=== PATIENT | female | born 1990 | race Caucasian/White ===

== ENCOUNTER → 2023-04-13 | Outpatient (CLI) | payer OTHER, SELFPAY ==
[2023-04-19 10:09] LABS: HPV APTIMA, High Risk Negative (Negative)
== END | disposition home or self-care (01) ==
PROVIDERS: Referring Provider Registered Nurse; Visit Provider Registered Nurse
DX: Z12.4 Encounter for screening for malignant neoplasm of cervix (principal)
CPT/HCPCS: 87624; 88175; G0145

== ENCOUNTER → 2023-05-23 | Outpatient (CLI) | payer OTHER, SELFPAY ==
--- OUTSIDE RECORDS SUMMARY | 2023-05-23 14:12 | XMS RPT_ITS | CCD ---
Author Name Unknown Address [address] [place] [address] Organization [facility] Care Team Providers Care Wharf Tally Clerk Name Role Phone SALVATORE ESPARZA Admitting Unavailable SALVATORE ESPARZA Attending Unavailable ISAIAS, SALVATORE Scruggs Primary Care Unavailable ISAIASSALVATORE TURNER Admitting Unavailable ISAIASSALVATORE TURNER Attending Unavailable SALVATORE ESPARZA Primary Care Unavailable CONNER ALVAREZ NP Admitting Unavailable CONNER ALVAREZ NP Attending Unavailable CONNER ALVAREZ NP Primary Care Unavailable GABY SIEGEL Admitting Unavailable GABY SIEGEL Attending Unavailable CHRISTALGABY ESPOSITO Primary Care Unavailable Unavailable Primary Care Provider UnavailPATTI Miguel Attending Unavailable NATIVIDAD VALDES Unavailable PATTI DE LEON Attending Unavailable PATTI DE LEON Attending Unavailable Medications Completed/Discontinued Medications Medication Drug Class(es) Dates Sig (Normalized) Sig (Original) ARIPiprazole 5 mg oral tablet (2 sources) Atypical Antipsychotic Start: 12-07-2022 End: 01-06-2023 take 1 tablet by mouth once daily ARIPiprazole (ABILIFY) 5 mg tablet Indications: Anxiety and depression Take 1 tablet by mouth once daily. 90 tablet 0 12/07/2022 01/06/2023 Discontinued Problems Active Problems Problem Classification Problem Date Documented Da te Episodic/Chronic Abdominal pain (3 sources) Unspecified abdominal pain; Translations: [Epigastric pain] Onset: 12-21-2021 Episodic Anxiety disorders (4 sources) Mixed anxiety and depressive disorder; Translations: [Anxiety disorder, unspecified] Onset: 01-06-2023 12-07-2022 Chronic Immunizations and screening for infectious disease (2 sources) Viral screening status; Translations: [Encounter for screening for other viral diseases] 12-07-2022 Episodic Mood disorders (1 source) Mood disorders; Translations: [Anxiety and depression] Onset: 01-06-2023 Other injuries and conditions due to external causes (1 source) Injury of right ankle; Translations: [Unspecified injury of right ankle, initial encounter] 04-02-2023 Episodic Other injuries and conditions due to external causes (1 source) Unspecified injury of right ankle, initial encounter; Translations: [Right ankle injury, initial encounter] Onset: 04-02-2023 Episodic Other screening for suspected conditions (not mental disorders or infectious disease) (3 sources) Screening due; Translations: [Encounter for screening for lipoid disorders] 12-07-2022 Episodic Residual codes; unclassified (2 sources) Procedure not indicated; Translations: [Procedure and treatment not carried out for other reasons] 12-07-2022 Episodic Residual codes; unclassified (1 source) Procedure and treatment not carried out for other reasons; Translations: [Procedure, test, or exam not indicated] Onset: 03-17-2023 Episodic Unclassified (1 source) Multiple Concerns Onset: 12-07-2022 Past or Other Problems Problem Classification Problem Date Documented Date Episodic/Chronic Biliary tract disease (2 sources) Calculus of bile duct without cholangitis or cholecystitis without obstruction; Translations: [Disease of gallbladder, unspecified] Onset: 12-21-2021 Episodic Results Test Name Value Interpretation Reference Range Facil ity Vital Signs Date Time Vital Sign Value Performing Clinician Faci lity 04-02-2023 11:30-0500 Body temperature 98.8 [degF] Natividad Valdes APRN.NEWSPAPER EDITOR Work Phone: [facility] 04-02-2023 11:30-0500 Body weight 107.5 kg Natividad Valdes APRN.CNP Work Phone: [facility] 04-02-2023 11:30-0500 Diastolic blood pressure 83 mm[Hg] Natividad Valdes APRN.NEWSPAPER EDITOR Work Phone: [facility] 04-02-2023 11:30-0500 Heart rate 83 /min Natividad Valdes APRN.CNP Work Phone: [facility] 04-02-2023 11:30-0500 Respiratory rate 18 /min Natividad Valdes APRN.NEWSPAPER EDITOR Work Phone: [facility] 04-02-2023 11:30-0500 SaO2% (BldA) [Mass fraction] 96 % Natividad Valdes CAREER RESOURCE SPECIALIST.NEWSPAPER EDITOR Work Phone: [facility] 04-02-2023 11:30-0500 Systolic blood pressure 123 mm[Hg] Natividad Valdes CAREER RESOURCE SPECIALIST.NEWSPAPER EDITOR Work Phone: [facility] Encounters Encounter Date Encounter Type Care Provider Facility Start: 04-02-2023 End: 04-02-2023 ambulatory NATIVIDAD VALDES Facility:[facility] Start: 04-02-2023 End: 04-02-2023 Patient encounter procedure Natividad Valdes APRN.NEWSPAPER EDITOR Work Phone: [facility] Plan of Treatment Date Care Activity Detail Author Start: 01-07-2023 Influenza vaccination C [facility] Start: 12-07-2022 End: 02-06-2023 CBC W Auto Differential panel - Blood CBC + DIFF Lab Routine Anxiety and depression Expected: 12/07/2022, Expires: 02/06/2023 [facility] Work Phone: Payers Date Payer Category Payer Unknown [id number] 2022 Unknown MMO [employer] PPO [id number] 2022-Present [phone] [address] [place] [address] PPO [id number] 1991 Unknown [id number] 1991 Unknown [id number] 1991 Unknown [id number] 1991 Unknown [id number] Unknown [id number] Unknown [id number] Social History Date Type Detail Facility [facility] unknown [facility] Start: 11-23-2022 End: 01-06-2023 [facility] Start: 11-23-2022 End: 01-06-2023 Area Deprivation Index [facility] National Score (1-10 0), lower number is lower risk 65 [facility] Start: 1990 Sex Assigned At Not on file C [facility] Do you belong to any clubs or organizations such as shinto groups, unions, [employer] or athletic groups, or school groups? Yes [facility] Are you now , , , , never or living with a partner? [facility] How often to you hav e a drink containing alcohol? 2-4 times a month [facility] How many standard dr inks containing alcohol do you have on a typical day? 1 or 2 [facility] How often do you hav e 6 or more drinks on 1 occasion? Less than monthly [facility] Do you feel stress - tense, restless, nervous, or anxious, or unable to sleep at night because your mind is troubled all the time - these days [OSQ] Only a little [facility] (I/We) worried wheth er (my/our) food would run out before (I/we) got money to buy more. Never true [facility] In the past 12 month s, was there a time when you were not able to pay the mortgage or rent on time? No [facility] Start: 04-02-2023 [facility] Occasional tobacco smoker [facility] History of tobacco use Cigarette Smoker C [facility] Start: 04-02-2023 Tobacco use and exposure Smoke less tobacco non-user [facility] Start: 04-02-2023 Tobacco [facility] Clinical Notes 11-21-2022 to 04-02-2023 Patient InstructionsPraisler-Natividad Rose APRN.[facility] - 04/02/2023 11:40 AM ESTTelephone Encounter - Priyanka Fisher MA - 03/14/2023 11:17 AM Patti Norris MD - 01/06/2023 12:09 PM EDT Note Date & Type Note Facility 04-02-2023 Note HNO ID: [id number] Author: Jose Roa RT(R) Service: ? Author Type: Technologist Type: Progress Notes Filed: 04/02/2023 11:57 AM Note Text: Radiology Service Progress Note PATIENT NAME: Danni Muñoz DATE OF SERVICE: April 02, 2023 TIME: 11:50 AM PATIENT IDENTITY VERIFICATION COMPLETED USING TWO (2) IDENTIFIERS: Name and Date of confirmed by patient verbally. FALL SCREENING: Has the patient had 2 falls in the last year or 1 fall with injury or currently using an Ambulatory Assistive Device (Walker, Cane, Wheelchair, Crutches, etc.)? Yes, Patient High Risk for Falls What interventions were put in place to prevent falls during this visit? Increased Observations by Caregivers PATIENT GENDER DATA: Female. status: : No status: NO. PATIENT RELEVANT IMPLANT DATA REVIEWED: Not Applicable RADIOLOGY DEPARTMENT: General X-ray: Exam(s) Completed: Lower Extremity X-Ray(s): Ankle, Right and Wt. Bearing PERIPHERAL IV DATA: Not applicable SIGNED BY: RT Marva(R) April 02, 2023 11:50 AM [facility] 04-02-2023 Note HNO ID: [id number] Author: Natividad Valdes APRN.NEWSPAPER EDITOR Service: ? Author Type: Nurse Practitioner Type: Progress Notes Filed: 04/02/2023 12:31 PM Note Text: Subjective Ankle Pain Pertinent negatives include no chills, fever or rash. Danni Muñoz is a 32 year old female who presents with right posterior ankle pain for the past month. She tripped over a pallet at work and twisted her ankle. She had pain at that time but after a few days it started to get better so she did not seek treatment at that time. However she has continued to have pain and has been limping around for a month so my forced me to come in . She has not taken anything for pain. She has used ice on the painful area. Review of Systems Constitutional: Negative for chills and fever. Musculoskeletal: Positive for joint pain. Negative for falls. See HPI Skin: Negative for itching and rash. BP 123/83 Pulse 83 Temp 37.1 ?C (98.8 ?F) Resp 18 Wt 107.5 kg (237 lb) SpO2 96% No past medical history on file. No past surgical history on file. ALLERGIES Patient has no known allergies. MEDICATIONS hydrOXYzine HCl (ATARAX) 10 mg tablet Take 1 tablet by mouth once daily. sertraline (ZOLOFT) 100 mg tablet Take 1 tablet by mouth once daily. FAMILY HISTORY Problem Relation Age of Onset Diabetes Father Ovarian cancer Other Great aunt Social History Tobacco Use Smoking status: Some Days Types: Cigarettes Smokeless tobacco: Never Tobacco comments: Vape Objective Physical Exam Vitals and nursing note reviewed. Constitutional: General: She is not in acute distress. Appearance: Normal appearance. She is obese. Musculoskeletal: General: Tenderness and signs of injury present. No swelling or deformity. Right ankle: No swelling, deformity or ecchymosis. Tenderness present. No lateral malleolus or medial malleolus tenderness. Normal range of motion. Normal pulse. Right Achilles Tendon: Tenderness present. No defects. Sy's test negative. Legs: Skin: General: Skin is warm and dry. Findings: No bruising, erythema or rash. Neurological: Mental Status: She is alert. ASSESSMENT/PLAN: 1. Right ankle injury, initial encounter - ICD9: 959.7, ICD10: S99.911A - XR ANKLE GENERAL 3V AP/LAT/OBL RIGHT RESULT: Ankle mortise maintained. No acute fracture or dislocation. No appreciable soft tissue swelling. IMPRESSION: No acute abnormality Electronic Organ Mechanic: CORNELIA Transcribe Date/Time: Apr 02 2023 12:07P Dictated by : JOSSY SALINAS MD - CONSULT PANEL TO ORTHOPAEDICS - Follow-up with orthopedics as soon as possible for further evaluations. - Discussed red flags and need for immediate medical evaluation if any occur. - Discussed supportive care treatment with fluids, rest and analgesia. - Discussed expected course of illness Natividad Valdes APRN.CNP [facility] 04-02-2023 Instructions Natividad Valdes APRN.CNP - 04/02/2023 12:27 PM EST ASSESSMENT/PLAN: 1. Right ankle injury, initial encounter - ICD9: 959.7, ICD10: S99.911A - XR ANKLE GENERAL 3V AP/LAT/OBL RIGHT RESULT: Ankle mortise maintained. No acute fracture or dislocation. No appreciable soft tissue swelling. IMPRESSION: No acute abnormality Electronic Organ Mechanic: CORNELIA Transcribe Date/Time: Apr 02 2023 12:07P Dictated by : JOSSY SALINAS MD - CONSULT PANEL TO ORTHOPAEDICS - Follow-up with orthopedics as soon as possible for further evaluations. - Discussed red flags and need for immediate medical evaluation if any occur. - Discussed supportive care treatment with fluids, rest and analgesia. - Discussed expected course of illness Natividad Valdes APRN.NEWSPAPER EDITOR documented in this encounter [facility] 04-02-2023 History of Presen t illness Narrative Images from the original note were not included. Subjective Ankle Pain Pertinent negatives include no chills, fever or rash. Danni Muñoz is a 32 year old female who presents with right posterior ankle pain for the past month. She tripped over a pallet at work and twisted her ankle. She had pain at that time but after a few days it started to get better so she did not seek treatment at that time. However she has continued to have pain and has been limping around for a month so my forced me to come in . She has not taken anything for pain. She has used ice on the painful area. Review of Systems Constitutional: Negative for chills and fever. Musculoskeletal: Positive for joint pain. Negative for falls. See HPI Skin: Negative for itching and rash. BP 123/83 Pulse 83 Temp 37.1 C (98.8 F) Resp 18 Wt 107.5 kg (237 lb) SpO2 96% No past medical history on file. No past surgical history on file. ALLERGIES Patient has no known allergies. MEDICATIONS hydrOXYzine HCl (ATARAX) 10 mg tablet Take 1 tablet by mouth once daily. sertraline (ZOLOFT) 100 mg tablet Take 1 tablet by mouth once daily. FAMILY HISTORY Problem Relation Age of Onset Diabetes Father Ovarian cancer Other Great aunt Social History Tobacco Use Smoking status: Some Days Types: Cigarettes Smokeless tobacco: Never Tobacco comments: Vape Objective Physical Exam Vitals and nursing note reviewed. Constitutional: General: She is not in acute distress. Appearance: Normal appearance. She is obese. Musculoskeletal: General: Tenderness and signs of injury present. No swelling or deformity. Right ankle: No swelling, deformity or ecchymosis. Tenderness present. No lateral malleolus or medial malleolus tenderness. Normal range of motion. Normal pulse. Right Achilles Tendon: Tenderness present. No defects. Sy's test negative. Legs: Skin: General: Skin is warm and dry. Findings: No bruising, erythema or rash. Neurological: Mental Status: She is alert. ASSESSMENT/PLAN: 1. Right ankle injury, initial encounter - ICD9: 959.7, ICD10: S99.911A - XR ANKLE GENERAL 3V AP/LAT/OBL RIGHT RESULT: Ankle mortise maintained. No acute fracture or dislocation. No appreciable soft tissue swelling. IMPRESSION: No acute abnormality Electronic Organ Mechanic: CORNELIA Transcribe Date/Time: Apr 02 2023 12:07P Dictated by : JOSSY SALINAS MD - CONSULT PANEL TO ORTHOPAEDICS - Follow-up with orthopedics as soon as possible for further evaluations. - Discussed red flags and need for immediate medical evaluation if any occur. - Discussed supportive care treatment with fluids, rest and analgesia. - Discussed expected course of illness Natividad Valdes APRN.NEWSPAPER EDITOR documented in this encounter [facility] 03-14-2023 Miscellaneous Notes Medication refill requested by Patient Please review and advise. Requested Prescriptions Pending Prescriptions Disp Refills hydrOXYzine HCl (ATARAX) 10 mg tablet 90 tablet 0 Sig: Take 1 tablet by mouth once daily. Last encounter with this provider: Visit date not found Next appt: 03/17/2023 Allergies: Not on File No data found for this vital: BP Hepatitis B Vaccine(1 of 3 - 3-dose series) Never done Covid-19 Vaccine(1) Never done Hepatitis C Screening Never done HIV Screening Never done DTaP,Tdap,Td Vaccine(1 - Tdap) Never done Pap Testing Never done HPV Testing Never done Depression Assessment Never done Influenza Vaccine(1) Never done No results found for: WBC , HB , PLT , GLUC , BUN , CREAT , NA , K , CA , ALKPHOS , TBILI , AST , ALT , CHOL , TG , TSH Current Outpatient Medications on File Prior to Visit Medication Sig hydrOXYzine HCl (ATARAX) 10 mg tablet TAKE 1 TABLET BY MOUTH ONCE DAILY AT BEDTIME AND NEEDED sertraline (ZOLOFT) 100 mg tablet Take 1 tablet by mouth once daily. No current facility-administered medications on file prior to visit. Items addressed in this encounter: Refill Encounter MyChart Encounter Priyanka Fisher MA March 14, 2023 11:18 AM 11:18 AM documented in this encounter [facility] 02-17-2023 Note HNO ID: [id number] Author: Patti De Leon MD Service: ? Author Type: Physician Type: Progress Notes Filed: 03/17/2023 4:57 PM Note Text: Appointment cancelled/rescheduled or patient did not log in for appt. Patti De Leon MD [facility] 01-06-2023 Note HNO ID: [id number] Author: Patti De Leon MD Service: ? Author Type: Physician Type: Progress Notes Filed: 02/17/2023 5:20 PM Note Text: Appointment cancelled/rescheduled or patient did not log in for appt. Patti De Leon MD [facility] 01-06-2023 History of Presen t illness Narrative Appointment cancelled/rescheduled or patient did not log in for appt. Patti De Leon MD documented in this encounter [facility] 01-02-2023 Note HNO ID: [id number] Author: Patti De Leon MD Service: ? Author Type: Physician Type: Progress Notes Filed: 01/06/2023 12:09 PM Note Text: Telemedicine Visit - Distance Health Virtual Visit Note Patient seen on [employer] video visit platform. Location of patient: [place] I have communicated my name and active licensure. The patient's identity and physical location were verified at the time of this visit. Either the patient or their legal clearance representative has been informed of the risks and benefits of -- and alternatives to -- treatment through a remote evaluation and consents to proceed with the evaluation remotely. History of Present Illness Patient presents for follow-up 1) Anxiety/depression - Last visit: Abilify 5mg, Prozac 20mg, Hydroxyzine 10mg. Has been on this regimen for several years. Medications initially worked well, but now having some breakthrough symptoms. Plans to begin trying to conceive and would like to switch to medications safe in [place] taper Prozac and Zoloft. Start Zoloft 25mg. Decrease Prozac to 10mg daily for 1 week. After 1 week, stop Prozac and increase Zoloft to 50mg daily Continue Abilify and Hydroxyzine for now F/u 4-6 weeks. At this time, we will up-titrate the Sertraline dose as needed and d/c Abilify. Feels much better on the medication. 70-75% improved. Abilify has been stopped. Labs ordered, but not obtained. No past medical history on file. Current Outpatient Medications on File Prior to Visit Medication Sig sertraline (ZOLOFT) 50 mg tablet Take 1 tablet by mouth once daily. FLUoxetine (PROZAC) 10 mg capsule 1 capsule daily for 14 days as we cross taper Sertraline. ARIPiprazole (ABILIFY) 5 mg tablet Take 1 tablet by mouth once daily. No current facility-administered medications on file prior to visit. Video Exam (Examination performed via Video enabled technology) General appearance: Alert, oriented, pleasant, in NAD :Yes Ill appearing :No Lethargic appearing :No Respiratory distress :No ASSESSMENT/PLAN: 1. Anxiety and depression - ICD9: 300.00, 311, ICD10: F41.9, F32.A Excellent response to medication Increase Sertraline to 100mg F/u 4-6 weeks, sooner for any new or worsening symptoms To ER for SI - SERTRALINE 100 MG TABLET Patti De Leon MD [facility] 01-02-2023 History of Presen t illness Narrative Telemedicine Visit - Distance Health Virtual Visit Note Patient seen on [employer] video visit platform. Location of patient: [place] I have communicated my name and active licensure. The patient's identity and physical location were verified at the time of this visit. Either the patient or their legal clearance representative has been informed of the risks and benefits of -- and alternatives to -- treatment through a remote evaluation and consents to proceed with the evaluation remotely. History of Present Illness Patient presents for follow-up 1) Anxiety/depression - Last visit: Abilify 5mg, Prozac 20mg, Hydroxyzine 10mg. Has been on this regimen for several years. Medications initially worked well, but now having some breakthrough symptoms. Plans to begin trying to conceive and would like to switch to medications safe in [place] taper Prozac and Zoloft. Start Zoloft 25mg. Decrease Prozac to 10mg daily for 1 week. After 1 week, stop Prozac and increase Zoloft to 50mg daily Continue Abilify and Hydroxyzine for now F/u 4-6 weeks. At this time, we will up-titrate the Sertraline dose as needed and d/c Abilify. Feels much better on the medication. 70-75% improved. Abilify has been stopped. Labs ordered, but not obtained. No past medical history on file. Current Outpatient Medications on File Prior to Visit Medication Sig sertraline (ZOLOFT) 50 mg tablet Take 1 tablet by mouth once daily. FLUoxetine (PROZAC) 10 mg capsule 1 capsule daily for 14 days as we cross taper Sertraline. ARIPiprazole (ABILIFY) 5 mg tablet Take 1 tablet by mouth once daily. No current facility-administered medications on file prior to visit. Video Exam (Examination performed via Video enabled technology) General appearance: Alert, oriented, pleasant, in NAD :Yes Ill appearing :No Lethargic appearing :No Respiratory distress :No ASSESSMENT/PLAN: 1. Anxiety and depression - ICD9: 300.00, 311, ICD10: F41.9, F32.A Excellent response to medication Increase Sertraline to 100mg F/u 4-6 weeks, sooner for any new or worsening symptoms To ER for SI - SERTRALINE 100 MG TABLET Patti De Leon MD documented in this encounter [facility] 12-07-2022 Instructions Patti De Leon MD - 12/07/2022 10:28 AM EDT Have labs drawn (fasting) Start Sertraline (Zoloft) 25mg (1/2 tab) daily. Decrease Prozac to 10mg daily for 1 week. After 1 week, stop Prozac and increase Zoloft to 50mg daily. Continue Abilify for now - We will stop this medication in the future Follow-up in 4-6 weeks. Postpone trying to conceive for now until we have switched over to Sertraline and stopped the Abilify. documented in this encounter [facility] 12-07-2022 Nurse Note Items addressed in this encounter: Virtual Visit Pre Check In Attempted to reach patient no answer Phone number does not ring Courtney Pollock MA December 07, 2022 9:09 AM 9:09 AM documented in this encounter [facility] 12-06-2022 Note HNO ID: [id number] Author: Patti De Leon MD Service: ? Author Type: Physician Type: Progress Notes Filed: 12/07/2022 10:28 AM Note Text: Telemedicine Visit - Distance Health Virtual Visit Note Patient seen on [employer] video visit platform. Location of patient: [place] I have communicated my name and active licensure. The patient's identity and physical location were verified at the time of this visit. Either the patient or their legal clearance representative has been informed of the risks and benefits of -- and alternatives to -- treatment through a remote evaluation and consents to proceed with the evaluation remotely. History of Present Illness Patient presents to establish care. 1) Anxiety/depression - Abilify 5mg, Prozac 20mg, Hydroxyzine 10mg. Has been on this regimen for several years. Medications initially worked well, but now having some breakthrough symptoms. Plans to begin trying to conceive and would like to switch to medications safe in No other health issues. No tobacco, social EtOH. Last pap was 2020. Normal, per patient. No past medical history on file. No current outpatient medications on file prior to visit. No current facility-administered medications on file prior to visit. Video Exam (Examination performed via Video enabled technology) General appearance: Alert, oriented, pleasant, in NAD :Yes Ill appearing :No Lethargic appearing :No Respiratory distress :No ASSESSMENT/PLAN: 1. Anxiety and depression - ICD9: 300.00, 311, ICD10: F41.9, F32.A (primary diagnosis) Cross taper Prozac and Zoloft. Start Zoloft 25mg. Decrease Prozac to 10mg daily for 1 week. After 1 week, stop Prozac and increase Zoloft to 50mg daily Continue Abilify and Hydroxyzine for now F/u 4-6 weeks. At this time, we will up-titrate the Sertraline dose as needed and d/c Abilify. - SERTRALINE 50 MG TABLET - FLUOXETINE 10 MG CAPSULE - CBC + DIFF - TSH BLD - ARIPIPRAZOLE 5 MG TABLET 2. Need for lipid screening - ICD9: V77.91, ICD10: Z13.220 - LIPID PANEL BASIC 3. Diabetes mellitus screening - ICD9: V77.1, ICD10: Z13.1 - COMP METABOLIC PANEL 4. Need for hepatitis C screening test - ICD9: V73.89, ICD10: Z11.59 - HEPATITIS C ANTIBODY IA WITH CONFIRMATION 5. Screening for HIV (human immunodeficiency virus) - ICD9: V73.89, ICD10: Z11.4 - HIV 1 2 COMBO(AG/AB),WITH REFLEX TO DIFFERENTIATION 6. Screening for cervical cancer - ICD9: V76.2, ICD10: Z12.4 Patti De Leon MD [facility] 12-06-2022 History of Presen t illness Narrative Telemedicine Visit - Distance Health Virtual Visit Note Patient seen on [employer] video visit platform. Location of patient: [place] I have communicated my name and active licensure. The patient's identity and physical location were verified at the time of this visit. Either the patient or their legal clearance representative has been informed of the risks and benefits of -- and alternatives to -- treatment through a remote evaluation and consents to proceed with the evaluation remotely. History of Present Illness Patient presents to establish care. 1) Anxiety/depression - Abilify 5mg, Prozac 20mg, Hydroxyzine 10mg. Has been on this regimen for several years. Medications initially worked well, but now having some breakthrough symptoms. Plans to begin trying to conceive and would like to switch to medications safe in No other health issues. No tobacco, social EtOH. Last pap was 2020. Normal, per patient. No past medical history on file. No current outpatient medications on file prior to visit. No current facility-administered medications on file prior to visit. Video Exam (Examination performed via Video enabled technology) General appearance: Alert, oriented, pleasant, in NAD :Yes Ill appearing :No Lethargic appearing :No Respiratory distress :No ASSESSMENT/PLAN: 1. Anxiety and depression - ICD9: 300.00, 311, ICD10: F41.9, F32.A (primary diagnosis) Cross taper Prozac and Zoloft. Start Zoloft 25mg. Decrease Prozac to 10mg daily for 1 week. After 1 week, stop Prozac and increase Zoloft to 50mg daily Continue Abilify and Hydroxyzine for now F/u 4-6 weeks. At this time, we will up-titrate the Sertraline dose as needed and d/c Abilify. - SERTRALINE 50 MG TABLET - FLUOXETINE 10 MG CAPSULE - CBC + DIFF - TSH BLD - ARIPIPRAZOLE 5 MG TABLET 2. Need for lipid screening - ICD9: V77.91, ICD10: Z13.220 - LIPID PANEL BASIC 3. Diabetes mellitus screening - ICD9: V77.1, ICD10: Z13.1 - COMP METABOLIC PANEL 4. Need for hepatitis C screening test - ICD9: V73.89, ICD10: Z11.59 - HEPATITIS C ANTIBODY IA WITH CONFIRMATION 5. Screening for HIV (human immunodeficiency virus) - ICD9: V73.89, ICD10: Z11.4 - HIV 1 2 COMBO(AG/AB),WITH REFLEX TO DIFFERENTIATION 6. Screening for cervical cancer - ICD9: V76.2, ICD10: Z12.4 Patti De Leon MD documented in this encounter [facility] 11-21-2022 Note HNO ID: [id number] Author: Patti De Leon MD Service: ? Author Type: Physician Type: Progress Notes Filed: 12/07/2022 9:21 AM Note Text: Appointment cancelled/rescheduled or patient did not log in for appt. Patti De Leon MD [facility] 11-21-2022 History of Presen t illness Narrative Appointment cancelled/rescheduled or patient did not log in for appt. Patti De Leon MD documented in this encounter [facility] Diagnosis Anxiety and depression- Primary Dysthymic disorder Need for lipid screening Screening for lipoid disorders Diabetes mellitus screening Screening for diabetes mellitus Need for hepatitis C screening test Special screening examination for other specified viral diseases Screening for HIV (human immunodeficiency virus) Special screening examination for other specified viral diseases Screening for cervical cancer Screening for malignant neoplasm of the cervix [facility] Diagnosis Anxiety and depression- Primary Dysthymic disorder Anxiety and depression- Primary Dysthymic disorder [facility] Diagnosis Procedure, test, or exam not indicated- Primary Procedure not carried out for other reasons Anxiety and depression- Primary Dysthymic disorder [facility] Diagnosis Anxiety and depression Dysthymic disorder Anxiety and depression- Primary Dysthymic disorder [facility] Diagnosis Right ankle injury, initial encounter- Primary documented in this encounter [facility] Summary Purpose Family History No Family History Records FoundNo Family History Records FoundNo Family History Records Found Advance Directives No Advanced Directives Records FoundNo Advanced Directives Records FoundNo Advanced Directives Records Found Reason for Referral Specialty Diagnoses / Procedures Referred By Contac t Referred To Contact Orthopedics Diagnoses Right ankle injury, initial encounter Procedures CONSULT PANEL TO ORTHOPAEDICS OFFICE/OUTPATIENT [facility] 60-74 MINUTES Natividad Valdes, ЮЛИЯ.NEWSPAPER EDITOR [address] [place] [address] Referral ID Status Reason Start Date Expiration Date Visits Requested Visits Authorized [id number] Authorized PCP Requested Referral 3 04/01/2024 1 1 Specialty Diagnoses / Procedures Referred By Contloren t Referred To Contact XR IMAGING Diagnoses Right ankle injury, initial encounter Procedures XR ANKLE GENERAL 3V AP/LAT/OBL RIGHT RADEX ANKLE COMPLETE MINIMUM 3 VIEWS Natividad Valdes APRN.NEWSPAPER EDITOR [address] [place] [address] [place] [address] Referral ID Status Reason Start Date Expiration Date V isits Requested Visits Authorized [id number] Closed Auto-Generate d Referral 04/02/2023 05/01/2024 1 1 Additional Source Comments INFORMATION SOURCE (unrecogn ized section and content) DATE CREATED AUTHOR AUTHOR'S ORGANIZ ATION 10/23/2022 [facility] DATE CREATED AUTHOR AUTHOR'S ORGANIZ ATION 04/03/2023 [facility] Source Comments (unrecognize d section and content) In the event this informatio n is protected by the Federal Confidentiality of Alcohol and Drug Abuse Patient Records regulations: The Federal rules restrict any use of the information to criminally investigate or prosecute any alcohol or drug abuse patient.[facility] the event this information is protected by the Federal Confidentiality of Alcohol and Drug Abuse Patient Records regulations: The Federal rules restrict any use of the information to criminally investigate or prosecute any alcohol or drug abuse patient.[facility] the event this information is protected by the Federal Confidentiality of Alcohol and Drug Abuse Patient Records regulations: The Federal rules restrict any use of the information to criminally investigate or prosecute any alcohol or drug abuse patient.[facility] the event this information is protected by the Federal Confidentiality of Alcohol and Drug Abuse Patient Records regulations: The Federal rules restrict any use of the information to criminally investigate or prosecute any alcohol or drug abuse patient.[facility] the event this information is protected by the Federal Confidentiality of Alcohol and Drug Abuse Patient Records regulations: The Federal rules restrict any use of the information to criminally investigate or prosecute any alcohol or drug abuse patient.[facility] the event this information is protected by the Federal Confidentiality of Alcohol and Drug Abuse Patient Records regulations: The Federal rules restrict any use of the information to criminally investigate or prosecute any alcohol or drug abuse patient.[facility] the event this information is protected by the Federal Confidentiality of Alcohol and Drug Abuse Patient Records regulations: The Federal rules restrict any use of the information to criminally investigate or prosecute any alcohol or drug abuse patient.[facility] Reason for Visit (unrecogniz ed section and content) Reason Comments Multiple Concerns Reason Comments Follow Up Reason Comments Ankle Pain R ankle pain x1 shell h FOR RECORDS PERTAINING TO PATIENTS WHO ARE OR HAVE BEEN ENROLLED IN A CHEMICAL DEPENDENCY/SUBSTANCEABUSE PROGRAM, SOME INFORMATION MAY BE OMITTED. This clinical summary was aggregated from multiple sources. Caution should be exercised in using it in the provision of clinical care. This summary normalizes information from multiple sources, and as a consequence, information in this document may materially change the coding, format and clinical context of patient data. In addition, data may be omitted in some cases. CLINICAL DECISIONS SHOULD BE BASED ON THE PRIMARY CLINICAL RECORDS. [employer] [facility]. provides no warranty or guarantee of the accuracy or completeness of information in this document.
[2023-05-23 14:22] LABS: hCG Titer Quant., Serum 16 mIU/mL (1-3)
== END | disposition home or self-care (01) ==
LOC: PAVLAB 13:26
PROVIDERS: Referring Provider Nurse Practitioner Women's Health; Visit Provider Nurse Practitioner Women's Health
DX: N92.0 Excessive and frequent menstruation with regular cycle (principal)
CPT/HCPCS: 36415; 84702; 86850; 86900; 86901

== ENCOUNTER → 2023-05-25 | Outpatient (CLI) | payer OTHER, SELFPAY ==
[2023-05-25 11:18] LABS: hCG Titer Quant., Serum 9 mIU/mL (1-3)
== END | disposition home or self-care (01) ==
LOC: PAVLAB 10:22
PROVIDERS: Visit Provider Nurse Practitioner Women's Health
DX: N92.0 Excessive and frequent menstruation with regular cycle (principal)
CPT/HCPCS: 36415; 84702

== ENCOUNTER 2023-08-08 08:00 | Outpatient (RCR) | payer OTHER, SELFPAY ==
--- NOTE | 2023-08-08 09:00 | BH.SGPN.GN ---
Behaviors/Verbalizations/Mental Status: [Patient was alert and oriented, appropriately dressed and groomed. Eye contact was poor, motor activity normal, patient did not speak other than stating she did not want to share. Affect and mood unable to be determined due to lack of participation. Thoughts unable to be determined due to lack of participation. Reviewed Patients symptom tracker and the patient reports depressed mood, anxiety/panic attacks, agitation/irritability/anger, self-harm urges, and thoughts/risk of suicide within normal limits.] Client Response/Progress/Benefit: [Today was patients first day. Patient stated she did not want to share during first group. Patient was quiet and respectful to other group members while they shared their mental wins and stressors. Patient will continue with IOP treatment to help develop healthy skills, promote mood stability, and improve distress tolerance. ] Narrative Note: []
--- NOTE | 2023-08-08 09:00 | BH.COMM ---
Communication Note Communication with Client Communication Note: Met with patient to complete initial paperwork and review history. No significant changes since pre-admission screening. Completed [place] Suicide Screening. Low risk. Consulted with Dr. Ramirez with plan to admit to IOP with dx F41.1
--- NOTE | 2023-08-08 10:10 | BH.SGPN.GN ---
Behaviors/Verbalizations/Mental Status: []Pt alert and oriented, casually dressed and groomed. Eye contact good. Motor activity appropriate. Speech within normal limits. Affect congruent, mood depressed and anxious. Thoughts linear, logical, no signs of hallucinations or delusions. Client Response/Progress/Benefit: [] Pt connected with topic of anxiety and participated throughout, providing input at times and taking notes. Participated throughout interactive discussion defining anxiety and identifying cognitive and physiological symptoms of anxiety. Group discussed how anxiety can prevent them from trying new things. Pt identified physical signs of anxiety as increased heart rate, headache, and stomachache. Pt identified safety behaviors as masking emotions, dissociation, and avoidance. Benefited from increased awareness and insight on anxiety and its impact. Pt will continue IOP tx to prevent decompensation, improve daily functioning, and increase coping skill repertoire. Narrative Note: []
--- NOTE | 2023-08-08 11:15 | BH.SGPN.GN ---
Behaviors/Verbalizations/Mental Status: []Pt alert and oriented, casually dressed and groomed. Eye contact fair. Motor activity appropriate. Speech within normal limits. Affect congruent, mood anxious. Thoughts linear, logical, no signs of hallucinations or delusions. Client Response/Progress/Benefit: [] Pt was an active participant AEB pt providing input and listening attentively to peers. Attentive during psychoeducation on mindfulness coping skills and their impact on reducing anxiety and improving overall mental health wellness. Group was able to identify self-soothing and mind-based coping skills which included: 5-senses, meditation, deep breathing, journaling, thought challenging, and progressive muscle relaxation. Pt also participated with peers in practicing mindfulness skills in session. Pt would like to work on spending more time with her animals when she feels anxious. Appeared to benefit from increasing repertoire of anxiety reduction skills. Pt will continue in IOP tx to prevent decompensation, maintain safety, and improve daily functioning. ? Narrative Note: []
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
--- NOTE | 2023-08-10 10:45 | BH.NA_ITS ---
Physical Data Vital Signs Pulse Rate: 69 Blood Pressure: 132/88 Height/Weight Height: 1.75 m Weight:: 105.233 kg Weight in Pounds: 232.0 lbs Current Medication Compliance Medication Compliance Do you take your medication as prescribed?: Yes Nutritional History Appetite Nutritional Instructions: Describe your appetite:: Good Additional nutritional information:: Client states she has gained 65lbs in the l ast 9-10 months and reports overeating at times to the point of feeling sick. Functional Assessment Sleep Pattern Describe any problems with sleeping: Client states she has been sleeping about 4-5 hours per night for years. Sensory/Communication Assess Communication Problems Do you have difficulty understanding what people are saying?: No Medical Problems/History Metabolic Conditions Metabolic: Other (See comments) (PCOS) Pain Assessment Do you have acute or chronic pain?: No Family History Family History Mother Hypertension CAD (coronary artery disease) Aunt Ovarian cancer 30s, had hysterectomy Father Diabetes Surgical History Surgical History Have you had any surgeries? If so, list type and date:: Yes (cholecystectomy) Substance Abuse Substance Abuse Please describe substance abuse in the last 30 days:: Client states she has about 1 glass of wine per week. Client states she is a former cigarette smoker for 10 years and quit in 2020. Client states she does vape socially. Client has a history of using cocaine and heroin for a 2 year period, but states she has been sober for 12 years and denies any other substance use. Client states she currently drinks a whole pot of coffee per day and 1-2 energy drinks per day. Client states Dr. Ramirez talked to her about cutting out energy drinks and stopping caffeine use after 12pm. Mental Status Summary Mental Status Significant Findings/Observations on Appearance and Mood:: Client is alert and oriented x 4. Client is casually groomed with good hygiene. Client is cooperative with assessment. Client makes fair eye contact. Client's voice has normal rate and volume. Client has a flat affect. Client makes logical associations and has normal processing. Client denies delusions/hallucinations. Client denies current SI. Suicide Assessment Suicidal Ideation Are you currently or have you been suicidal in the past?: Yes Suicidal Intentional Rating Scale (SIRS): Suicidal thoughts (past) Physician Notification Past Psychiatric History Treatment Hx Past Psychiatric Medications:: Prozac, Xanax, others that she can not remember at this time Age of first mental health symptoms: Client states she first took medications for anxiety around age 19 and has taken them off and on since then. Describe (age, circumstance, etc) any past hospitalizations: in 2009 after a suicide attempt Current providers for mental health treatment (counselor, psychiatrist, case management specialist, etc.): [facility] for counseling Fall Risk Assessment Age Age: Less than 60 Mental Status Mental Status: Willing & able to ask for assistance when needed Physical Status Physical Status: No problems Impairments Impairments: None Elimination Elimination: Continent AND independent Gait or Balance Gait or Balance: Walks independently Hx of Falls History of falls in the past 6 months: No known history Medications/Substances Psychotropics:: Antidepressants and Antipsychotics Medications/substances used within the past 24 hours or ordered to administer: 1-2 of the medications/substances listed above Total Score Total Points:: 1 RN Summary of Impressions Impressions Recommendations Impressions: Psychiatric Issues: 1. Bipolar 1 disorder, most recent episode depression, severe without psychosis (F31.4) 2. PTSD 3. Generalized anxiety disorder 4. 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 Client reports she had a traumatic childhood, and states her mom in 2015 from a heroin overdose and her dad in 2017 in a car accident. Client states she had a cousin that 2 weeks after her dad. Client states her biggest mental health trigger was having a miscarriage in May of 2023. Client states her has been very supportive, but states she feels like he's at the end of his rope with me and this is like a last-ditch effort to save my marriage. Client reports decreased sleep, decreased ability to do ADL's, anhedonia, and panic attacks 2-3 times per week. Client denies SI. IOP will promote gains and prevent further decompensation while providing social support and skills training.
[2023-08-10 10:59] VITALS: BP 132/88; PULSE 69
--- NOTE | 2023-08-10 11:20 | BH.SGPN.GN ---
Behaviors/Verbalizations/Mental Status: []Pt alert and oriented, neatly dressed and groomed. Eye contact good. Motor activity appropriate. Speech within normal limits. Affect congruent, mood anxious. Thoughts linear, logical, no signs of hallucinations or delusions. Client Response/Progress/Benefit: [] Pt was an active participant in group discussions and experiential activity. Attentive during psychoeducation on the 4 A's (Avoid, adapt, alter, accept) of coping with stress. Shared that they would benefit most from accepting that there are some stressors that are permanently in her jar but she can learn to live alongside them. Was able to identify the connection between the experiential activity and utilization of stress management skills. Benefited from increased awareness of stress management strategies. Pt will continue IOP tx to prevent decompensation, improve daily functioning, and increase healthy coping skills. Narrative Note: []
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
--- NOTE | 2023-08-10 12:28 | BH.DR.ITP ---
Initial Treatment Plan Patient Information Visit Information: ADMISSION DATE: EXPECTED LOS: 4-6 weeks Problems/Symptoms Problem #1:: Mood instability Symptom:: Sadness, hopelessness, guilt, passive thoughts of , low energy, biological disruption of sleep, anhedonia, decreased concentration Symptom:: Recent episodes of donna several months ago. Problem #2:: Anxiety Symptom:: Worry, rumination, panic attacks, nightmares, flashbacks, avoidance
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
--- NOTE | 2023-08-10 14:32 | BH.MTP ---
[facility] Patient Information Program Physician:: Dr. 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 Description of Barriers: Pt has C-PTSD and her trauma continues to impact her functioning and mood. Pt has significant marital issues right now which pt reports belief is due to her mental health. Pt has many negative thoughts about self and she is grieving the loss of her . Functional Impact: Pt is a 32-year-old female with a history of Bipolar Disorder, RUPALI, and PTSD referred to [facility] due to severe anxiety, isolation, and mental health impacting pt's functioning and relationships. Pt had a miscarriage in May 2023 and she reports after this she had a psychotic break. during this time pt reports she was not thinking clearly, had disorganized thoughts, and she was being really reckless. 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 Pt currently endorses a depressed mood with low energy, lack of motivation, poor sleep, increased appetite, isolation, anhedonia, and poor concentration. Pt reports panic attacks 2-3 times a week and racing thoughts. Pt's symptoms are impacting her marriage as well as her occupational functioning per pt's report. Goal Relevant Strengths/Supports: Pt is motivated, has outpatient counseling, and she has been sober for 12 years. Objectives Objective #1: Stated Objective: Pt will learn and utilize 2-3 healthy coping strategies to better manage depressive symptoms and reduce suicidal ideations as shown by a decrease of DMS-5 symptoms for depression. Interventions: Through group and individual sessions, therapist will help pt identify triggers and warning signs of depression and guilt including emotional, physical, and behavioral changes. Therapist will teach pt various coping skills to manage symptoms and give pt tangible resources to use to regulate emotions. Therapist will use cognitive restructuring techniques and help pt gain awareness of negative thoughts that reinforce guilt and depression. Therapist will provide psychoeducation on maintenance cycles and help pt learn ways to break unhealthy maintenance cycles. Therapist will help pt incorporate behavioral activation and assist pt in setting SMART goals. Discharge Criteria: Pt will have met this goal when can report learning and using at least 2 coping skills to manage depressive symptoms and reduce isolation. Additionally, pt will have met this goal when pt's DSM-5 scores for depression decrease. Target Date: 09/19/23 Review Date: 08/29/23 Status: open Objective #2: Stated Objective: Pt will identify at least 2-3 negative self-talk messages used to reinforce negative core beliefs, worthlessness, and isolation and replace thoughts with balanced, realistic messages. Interventions: Therapist will help pt identify distorted, negative beliefs about self and replace with more realistic, affirmative messages. Therapist will use CBT and DBT to help pt increase insight to the connection between thoughts, emotions, and behaviors. Therapist will encourage pt to practice thought challenging. Discharge Criteria: Pt will have achieved this goal when can verbalize at least 2 cognitive distortions and effectively replace those thoughts with affirmative messages. Target Date: 09/19/23 Review Date: 08/29/23 Status: open Problem/Goal #2 Problem/Goal #2 Stated Goal:: Will reduce intensity of anxiety and PTSD symptoms through increasing emotional regulation and distress tolerance skills Description of Barriers: Pt has C-PTSD and her trauma continues to impact her functioning and mood. Pt has significant marital issues right now which pt reports belief is due to her mental health. Pt has many negative thoughts about self and she is grieving the loss of her . Functional Impact: Pt is a 32-year-old female with a history of Bipolar Disorder, RUPALI, and PTSD referred to [facility] due to severe anxiety, isolation, and mental health impacting pt's functioning and relationships. Pt had a miscarriage in May 2023 and she reports after this she had a psychotic break. during this time pt reports she was not thinking clearly, had disorganized thoughts, and she was being really reckless. 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 Pt currently endorses a depressed mood with low energy, lack of motivation, poor sleep, increased appetite, isolation, anhedonia, and poor concentration. Pt reports panic attacks 2-3 times a week and racing thoughts. Pt's symptoms are impacting her marriage as well as her occupational functioning per pt's report. Goal Relevant Strengths/Supports: Pt is motivated, has outpatient counseling, and she has been sober for 12 years. Objectives Objective #1: Stated Objective: Pt will identify 2-3 anxiety triggers and 2 coping skills to use when feeling anxious to manage anxiety as shown by reducing DSM-5 scores for anxiety Interventions: Therapist will provide education on anxiety, avoidance behaviors, and maintenance cycles. Therapist will help pt explore personal symptoms and warning signs of anxiety. Therapist will teach pt coping skills to improve emotional regulation, mindfulness, and distress tolerance to help pt cope with anxiety in the moment. Discharge Criteria: Pt will have accomplished this goal when she can identify at least 2 triggers and report using 2 coping skills to manage anxiety. Additionally, pt will have accomplished this goal AEB reduction of DSM-5 scores for anxiety. Target Date: 09/19/23 Review Date: 08/29/23 Status: open Objective #2: Stated Objective: Pt will increase ability to manage stressors and anxiety by gaining 2-3 distress tolerance skills. Interventions: Through group and individual therapy, pt will learn various coping skills to help manage stress and anxiety. Therapist will utilize DBT distress tolerance skills to increase awareness and give pt tools to more effectively manage anxiety. Therapist will provide psychoeducation on emotional regulation and help pt identify unhealthy coping skills she wants to change. Discharge Criteria: Pt will have accomplished this goal when can report improved ability to manage stressors and identify at least 2 distress tolerance skills. Target Date: 09/19/23 Review Date: 08/29/23 Status: open
--- NOTE | 2023-08-12 09:05 | BH.SGPN.GN ---
Behaviors/Verbalizations/Mental Status: [] Eye contact is good. Motor activity is appropriate. Appearance is casual. Speech is Appropriate. Mood is depressed. Affect is congruent. Thoughts are linear and logical. No evidence of psychosis. Reviewed daily check in sheet and no reports of suicidal ideations or intent. Client Response/Progress/Benefit: [] Pt participated when prompted. Attentive. Daily symptom tracker notes 4/5 for depression, anxiety, and irritability. Able to identify mental health benefits and healthy habits. Mental health wins include showering daily. I'm feeling better . Notes decreased anxiety and restlessness which she attributes to medication changes. Stressors include constantly trying to put on a happy face. Gave examples of this. She also reports that a couple of her friends are expecting which is difficult due to her recent miscarriage. Shared how this impacts her thoughts, emotions, and behaviors. Progress noted per pt report. Benefited from group support, encouragment, and feedback. Will continue in IOP to prevent decompensation, increase healhy coping, and stabilize mood. Narrative Note: []
--- NOTE | 2023-08-12 10:15 | BH.SGPN.GN ---
Behaviors/Verbalizations/Mental Status: [] Eye contact is good. Motor activity is appropriate. Appearance is casual. Speech is Appropriate. Mood is depressed and anxious. Affect is congruent. Thoughts are linear and logical. No evidence of psychosis. Client Response/Progress/Benefit: []Pt engaged participant AEB listening to others, engaging in activity, and providing feedback at times. Attentive during psychoeducation and provided insight into obstacles that impede mental wellness. Pt shared with group current mental health reality and desired mental health reality. Stated she would like to get to a place where she feels more confident and less depressed. Identified barriers to desired reality include: past trauma, negative self-talk, and need for instant gratification. Benefited from taking look at current mental health state and obstacles for progress. Pt to continue IOP tx to improve mood stability, reduce reliance on maladaptive coping, and prevent decompensation. Narrative Note: []
--- NOTE | 2023-08-12 11:15 | BH.SGPN.GN ---
Behaviors/Verbalizations/Mental Status: [] Eye contact is good. Motor activity is appropriate. Appearance is casual. Speech is Appropriate. Mood is anxious. Affect is congruent. Thoughts are linear and logical. No evidence of psychosis Client Response/Progress/Benefit: [] Pt was an active participant in group discussion and activity. Worked with group to identify strategies to help overcome barriers and obstacles to desired reality. Group developed strategies for the common barriers. Identified personal barriers to desired reality and choose one obstacle to work. Pt stated she wants to work on barrier of not enough time by setting nighttime schedule and setting limits for self. Pt seemed to benefit from increased repertoire of healthy coping skills/strategies to overcome common barriers to moving forward. Pt is to continue IOP to promote use of healthy coping skills, increase confidence, and prevent decompensation.
--- NOTE | 2023-08-15 09:00 | BH.SGPN.GN ---
Behaviors/Verbalizations/Mental Status: [ Patient was alert and oriented, appropriately dressed and groomed. Eye contact was fair, motor activity normal, speech quiet. Affect congruent, mood tired. Thoughts linear, logical, no signs of hallucinations or delusions. Reviewed Patients symptom tracker and the patient reports moderate to severe in depressed mood, anxiety/panic attacks and agitation/irritability/anger. Patient does not report symptoms of self-harm urges or thoughts/risk of suicide] Client Response/Progress/Benefit: [Patient was engaged and open to the discussion. Patient reported her mood to be ?lethargic?. Patients first win is she and her went on a hike with their dogs yesterday which was nice. Patients second win was that she got new hearing aids recently. However, her stressor is that the hearing aids have been overwhelming her but has been forcing herself to wear them still. Patient was interactive and respectful with other group members about their mental wins and stressors. Patient benefited from the discussion by listening to feedback and giving input on her peer?s stressors and mental health wins. Patient will continue with IOP treatment to help develop healthy skills, promote mood stability, and improve distress tolerance. ] Narrative Note: []
--- NOTE | 2023-08-15 10:15 | BH.SGPN.GN ---
Behaviors/Verbalizations/Mental Status: []Patient was alert and oriented, casually dressed and groomed. Eye contact was good, motor activity normal, speech within normal limits. Affect congruent, mood anxious and depressed. Thoughts linear, logical, no signs of hallucinations or delusion Client Response/Progress/Benefit: []Pt participated in the group discussions AEB providing input and taking notes. Attentive during psychoeducation Goal Setting. Participated during the discussion on common barriers which the group identified as: lack of motivation, making excuses, not feeling good enough, and lack of support. Group also identified benefits sense of purpose, improved self-confidence, more motivation for other goals, and improved mental health. Pt reports struggling specifically with barriers of low motivation and procrastination. Benefited from increased awareness of mental health benefits of goals as well as psychoeducation on SMART goal criteria. Will continue in IOP to prevent decompensation, improve daily functioning, and increase ability to manage emotions reinforcing depression and anxiety. Narrative Note: []
--- NOTE | 2023-08-15 11:10 | BH.SGPN.GN ---
Behaviors/Verbalizations/Mental Status: []Pt alert and oriented, casually dressed and groomed. Eye contact fair. Motor activity appropriate. Speech within normal limits. Affect constricted, mood anxious. Thoughts linear, logical, no signs of hallucinations or delusions. Client Response/Progress/Benefit: [] Pt was engaged during discussion and willing to complete the worksheet challenging them to develop a personal SMART goal. Pt chose the goal of cleaning one room of the house each day. Pt stated this will improve her mood and will be able to invite friends over. Pt identified low motivation and negative self-talk as potential barriers. Identified solutions such as rewarding self and reminding self how she will feel after accomplishing the goal. Pt receptive to identifying solutions for these barriers and willing to begin working on this goal. Benefited from this group by developing a short-term SMART goal related to mental health. Will continue IOP tx to improve daily functioning, increase healthy coping, and prevent decompensation.
--- NOTE | 2023-08-17 09:52 | BH.MDN ---
Multi-Disciplinary Note Note 30-min Individual: Time Started:: 09:12 Date: 08/17/23 Purpose of session/treatment goals addressed:: To help pt gain awareness of her symptoms of bipolar disorder so pt can catch and prevent episodes and worsening of symptoms. Another goal was to review coping skills for impulse control. Eye Contact:: Good Motor Activity:: Restless Appearance:: Neat Speech:: Rapid Mood:: Euthymic and Other (hypomanic) Affect:: Full Thoughts:: Linear, Logical, Racing and No evidence of hallucinations/delusions noted Staff Interventions:: thought challenging, psychoeducation on: (Bipolar Disorder and gave worksheet about donna and depressive symptoms), CBT techniques, rapport building, strengths perspective, goal setting and taught coping skills (Delay, Distract, Decide ) Client Response:: Pt responded well to session, open to meeting with therapist. Pt reports feeling much better this week and stated that he medication must be helping. Pt stated her PCP was thinking about adding another medication, but pt wanted to talk to Dr. Stewart first. Pt will be seen today and given a recommendation. Pt receptive to learning more about bipolar disorder as pt recognizes today she could be feeling slightly manic. Pt shared she has not been spending too impulsively, but she did purchase an IPad without telling her and that is a warning sign. Pt stated in the past her donna has led to a lot of marital issues and she is trying to improve for both herself and her marriage. Pt stated she has a hard time not lying to her and pt feels that she has been lying as a coping mechanism for years, so it is challenging to stop. Pt receptive to learning about Delay, Distract, Decide as well as writing down three questions to ask herself before making any purchases. Pt also stated she plans to talk with her about her purchase to build trust. Pt was given a worksheet from the Bipolar Workbook and therapist reviewed it with pt. Pt will start this for homework to help pt gain more awareness of her diagnosis. Risks/Concerns:: Pt presents as slightly manic currently, but she is still sleeping and she feels she is still making healthy decisions. No SI or HI noted. Progress Toward Goals/Plan:: Pt is making progress towards her tx goals AEB pt's self-report of her medication helping her mood and improve motivation. Pt stated she is also feeling more optimistic. Pt recognizes she could be slightly manic right now, but she stated she is not as severe as she has been in the past. Will discuss with IOP tx team and monitor. Pt can continue to benefit from IOP tx to prevent any decompensation, monitor medication and mood, and gain healthy coping skills to more effectively manage her bipolar disorder. Time Stopped:: 09:40
--- NOTE | 2023-08-17 10:05 | BH.SGPN.GN ---
Behaviors/Verbalizations/Mental Status: [] Eye contact is good. Motor activity is appropriate. Appearance is casual. Speech is Appropriate. Mood is anxious. Affect is congruent. Thoughts are linear and logical. No evidence of psychosis. Client Response/Progress/Benefit: [] Pt was actively engaged, providing input at times, and taking notes throughout session. Connected with the topic of pitfalls and listened to group discussion on internal and external barriers that prevent from choosing a healthier path to mental wellness. Group worked together to identify examples of personal internal pitfalls and pt identified theirs as manic episodes, self-sabotage, isolation, and trust issues. Pt benefited from group as pt learned to better identify and normalize potential barriers to improving mental health symptoms. Pt also gained awareness of the difference between external triggers and self-sabotaging behaviors. Will continue in IOP to prevent decompensation, stabilize mood, and increase healthy coping. Narrative Note: []
--- NOTE | 2023-08-17 11:10 | BH.SGPN.GN ---
Behaviors/Verbalizations/Mental Status: []Pt alert and oriented, casually dressed and groomed. Eye contact good. Motor activity appropriate. Speech within normal limits. Affect congruent, mood euthymic. Thoughts linear, logical, no signs of hallucinations or delusions. Client Response/Progress/Benefit: [] Pt receptive of session, engaged throughout AEB actively contributing and listening to discussion, as well as taking notes. Pt participated in the experiential activity and processed with group how their emotions, perspective, and reactions positively and negatively impacted the outcome. Pt identified pitfalls they struggle with and shared wanting to work on pitfall of anger/lashing out by practicing the Delay, Distract, Decide skill. Benefited from identifying personal pitfalls and strategies to overcome these pitfalls. Will continue IOP tx to prevent decompensation, improve daily functioning, and increase distress tolerance skills. ? Narrative Note: []
--- NOTE | 2023-08-17 11:34 | PCM.BH.PN ---
Progress Note Progress Note: This is documentation of a conversation with the patient to answer her question of whether she should start Wellbutrin that her primary care doctor prescribed for her yesterday. Discussed with the patient that she is not to start the Wellbutrin as 1 week ago we decided to wean the Abilify and started quetiapine or Seroquel which we will treat bipolar depression and hypomania so organ to stay the course with the plan that we decided on 1 week ago. She is not to start the Wellbutrin. This was not a visit just a conversation with the patient and I will see her as planned in 1 week.
--- NOTE | 2023-08-19 09:05 | BH.SGPN.GN ---
Behaviors/Verbalizations/Mental Status: [Patient was alert and oriented, appropriately dressed and groomed. Eye contact was good, motor activity normal, speech within normal limits. Affect congruent, mood content. Thoughts linear, logical, no signs of hallucinations or delusions. Reviewed Patients symptom tracker and the patient reports moderate to severe in anxiety/panic attacks, moderate in depressed mood and agitation/irritability/anger. Patient does not report symptoms of self-harm urges, or thoughts/risk of suicide] Client Response/Progress/Benefit: [Patient was engaged and open to the discussion. Patient reported her mood to be ?happy?. Patients first win s that she is feeling like her old self for the first time in a long while. She stated that she believes that her medication adjustment as well as her morning affirmations have been benefiting her. Patients second win is that she anticipates her [id number] to be [place] from [place] this weekend. She shared that they normally have dinner with her once a week but for the past 2 weeks they haven?t. Patient said she was not able to identify a stressor but maybe that she feels her mood might be too good to be true. Patient was interactive and respectful with other group members about their mental wins and stressors. Patient benefited from the discussion by listening to feedback and giving input on her peer?s stressors and mental health wins. Patient will continue with IOP treatment to help develop healthy skills, promote mood stability, and improve distress tolerance. ] Narrative Note: []
--- NOTE | 2023-08-19 10:10 | BH.SGPN.GN ---
Behaviors/Verbalizations/Mental Status: [] Eye contact is good. Motor activity is appropriate. Appearance is casual. Speech is Appropriate. Mood is anxious. Affect is congruent. Thoughts are linear and logical. No evidence of psychosis Client Response/Progress/Benefit: [] Pt responded well to session AEB contributing to small group discussion, taking notes, and listening attentively to others. Group defined anger and discussed the benefits of managed anger and anger as a secondary emotion. Pt shared perspective on personal benefits of anger as advocating for self. Pt completed worksheet on anger triggers and personal warning signs of anger. Pt identified a common trigger as being interrupted. Appeared to benefit from increased knowledge of the anger cycle as well as personal triggers. Will continue IOP to prevent decompensation, increase healthy coping skills, and improve functioning. Narrative Note: []
--- NOTE | 2023-08-19 11:15 | BH.SGPN.GN ---
Behaviors/Verbalizations/Mental Status: []Client alert and oriented, casually dressed and groomed. Eye contact good. Motor activity appropriate. Speech within normal limits. Affect congruent, mood content, anxious. Thoughts linear, logical, no signs of hallucinations or delusions. Client Response/Progress/Benefit: []Pt was engaged throughout AEB contributing to group discussion and self-reflection. Group finished processing cues to anger worksheet. Pt contributed as group brainstormed healthy coping skills for better managing anger which included: music, walking/exercise, taking a break, grounding tools, reflection, and journaling. Pt identified personal anger cycle and was able to make connections on how own thoughts/evaluations of a situation can worsen anger feelings. Stated will work on applying deep breathing skills to regulate herself when recognizing anger cues. Pt appeared to benefit from identifying different techniques to manage anger as well as gaining awareness of potential consequences of unmanaged anger. Pt to continue IOP to promote use of healthy coping skills, challenge distortions, promote mood stability, and prevent decompensation. Narrative Note: []
--- NOTE | 2023-08-22 09:00 | BH.SGPN.GN ---
Behaviors/Verbalizations/Mental Status: [Patient was alert and oriented, appropriately dressed and groomed. Eye contact was good, motor activity normal, speech within normal limits. Affect congruent, mood content. Thoughts linear, logical, no signs of hallucinations or delusions. Reviewed Patients symptom tracker and the patient reports moderate in depressed mood, anxiety/panic attacks, and low/moderate in agitation/irritability/anger. Patient does not report symptoms of self-harm urges or thoughts/risk of suicide.] Client Response/Progress/Benefit: [ Patient was engaged and open to the discussion. Patient reported her mood to be ?happy?. Patients first win is that she did not have any panic or anxiety attacks over the weekend. She said she believes that she feels more receptive of the therapy and has been working on herself at home more. Patients second win was that she and her went on a 3-mile hike yesterday and took advantage of the nice weather. Patients stressor is that her mom?s birthday is coming soon and since she?s passed, it?s difficult for her. Patient was interactive and respectful with other group members about their mental wins and stressors. Patient benefited from the discussion by listening to feedback and giving input on her peer?s stressors and mental health wins. Patient will continue with IOP treatment to help develop healthy skills, promote mood stability, and improve distress tolerance. ] Narrative Note: []
--- NOTE | 2023-08-22 10:10 | BH.SGPN.GN ---
Behaviors/Verbalizations/Mental Status: []Client alert and oriented, casually dressed and groomed. Eye contact good. Motor activity appropriate. Speech within normal limits. Affect congruent, mood anxious and content. Thoughts linear, logical, no signs of hallucinations or delusions. Client Response/Progress/Benefit: []Pt engaged in session AEB listening attentively to others and providing input throughout. Pt engaged in activity, able to connect how it can be uncomfortable and difficult to accept when things are out of one?s own control. Pt worked with group to identify what things in life can be hard to accept. Group identified things hard to accept as: change, loss of relationship, mental health diagnosis, other?s behaviors, and finances. Pt identified struggling to accept aging which has led to making decisions that may have been pushing herself too hard. Seemed to benefit from increased awareness of importance of acceptance. Pt to continue IOP tx to further improve mood stability, application of emotion regulation and healthy boundary setting skills, and prevent decompensation. Narrative Note: []
--- NOTE | 2023-08-22 11:10 | BH.SGPN.GN ---
Behaviors/Verbalizations/Mental Status: []Pt alert and oriented, casually dressed and groomed. Eye contact fair. Motor activity appropriate. Speech within normal limits. Affect congruent, mood anxious. Thoughts linear, logical, no signs of hallucinations or delusions. Client Response/Progress/Benefit: []Pt responded well to session AEB taking notes and contributing to discussion throughout. Pt engaged as group continued discussion on acceptance and the mental health benefits of practicing acceptance. Pt and peers identified what makes acceptance challenging and pt completed a self-reflection exercise on what is hard to accept in pt's life. Pt identified what is hard to accept in her life and how makes things harder when resists acceptance. Group identified strategies to increase acceptance and pt wrote down what strategy she wants to practice. Pt appeared to benefit from gaining insight and learning strategies to increase acceptance. Pt will continue IOP tx to increase confidence, challenge distortions, increase healthy coping skills, and prevent decompensation.
--- NOTE | 2023-08-24 09:00 | BH.SGPN.GN ---
Behaviors/Verbalizations/Mental Status: [Patient was alert and oriented, appropriately dressed and groomed. Eye contact was good, motor activity normal, speech within normal limits. Affect congruent, mood happy. Thoughts linear, logical, no signs of hallucinations or delusions. Reviewed Patients symptom tracker and the patient reports low moderate in depressed mood, anxiety/panic attacks, and agitation/irritability/anger. Patient does not report symptoms of self-harm urges/behaviors, or thoughts/risk of suicide.] Client Response/Progress/Benefit: [Patient was engaged and open to the discussion. Patient reported her mood to be ?rejuvenated?. Patients first win is that she has not had any panic or manic episodes and she is trying to keep herself from stressing about ?when it?ll happen again?. Patients second win is that she woke up extra early today to put together her new end tables and still feels rested. Patients stressor is that her new medication she is on has been inducing hot flashes and they are uncomfortable. Patient was interactive and respectful with other group members about their mental wins and stressors. Patient benefited from the discussion by listening to feedback and giving input on her peer?s stressors and mental health wins. Patient will continue with IOP treatment to help develop healthy skills, promote mood stability, and improve distress tolerance. ] Narrative Note: []
--- NOTE | 2023-08-24 10:10 | BH.SGPN.GN ---
Behaviors/Verbalizations/Mental Status: [] Eye contact is good. Motor activity is appropriate. Appearance is casual. Speech is Appropriate. Mood is anxious and content. Affect is congruent. Thoughts are linear and logical. No evidence of psychosis. Client Response/Progress/Benefit: [] Pt was an active participant in group discussions. Attentive during psychoeducation on the 4 communication styles (Passive, Passive-Aggressive, Aggressive, and Assertive) and the obstacles to effective communication. Contributed during interactive discussion on the benefits of communicating effectively which included; having one's needs met, helping, building connection with others, decreases stress and uncertainty, improved relationships, and increased trust. Worked well in small group in which pt and peers identified the benefits and disadvantages to the different communication styles. Pt identified connecting with aspects of passive communication style, reports she avoids conflict which can create friction within her marriage. Benefited from increased understanding of communication styles and how these can impact effective communication. Will continue in IOP to prevent decompensation, improve mood stability, and improve functioning. Narrative Note: []
--- NOTE | 2023-08-24 11:15 | BH.SGPN.GN ---
Behaviors/Verbalizations/Mental Status: []Pt alert and oriented, neatly dressed and groomed. Eye contact good. Motor activity appropriate. Speech within normal limits. Affect congruent, mood euthymic. Thoughts linear, logical, no signs of hallucinations or delusions. Client Response/Progress/Benefit: [] Pt responded well to session AEB Pt listening attentively to others and providing input during group discussion on the pay offs and costs of the different communication styles. Pt able to connect how current communication style impacts mental health. Connected with peers? comments about importance of using assertive communication. Pt did well being assertive in the group activity and practiced using assertive communication in the role playing scenarios. Pt helped her group develop assertive communication responses which pt reported was helpful because pt tends to be more passive. Pt seemed to benefit from increasing awareness of healthy strategies to improve communication. Will continue IOP tx to promote mood stability, reduce use of unhealthy coping skills, and improve daily functioning. ? Narrative Note: []
--- NOTE | 2023-08-24 12:08 | PCM.BH.PN ---
Progress Note Progress Note: History of Present Illness/Interim History: Patient is a 32-year-old female with a history of bipolar 1 disorder, PTSD, anxiety, cocaine and heroin use disorder (sober x 12 years) who is seen in follow-up at the [facility] behavioral health IOP. I last saw the patient 2 weeks ago and at that time we we decided to wean her Abilify and she discontinued it 1 week ago due to history of impulsivity and overspending. She had gambling issues shortly after restarting Abilify. And was using alcohol to excess at that time also. In addition the patient spontaneously stole a deposit from work then changed her mind and brought back but this resulted in her being fired from her job. She is now on probation for 1 year from this. We also added Seroquel and her slowly increasing it to help stabilize the patient's cycling. And treat her depression. The patient states that she feels she is doing well. She states that she feels calm. She states that her notices also that she is doing much better. She does not feel that she is hypomanic and she states that she has been watching for signs but has not noticed any rapid speech or rapid thinking. Since adding the Seroquel 2 weeks ago at 100 mg for sleep has faster onset now but she is still waking up during the night but is reading instead of getting out of bed. She feels she is functioning better at home. She denies sadness now and states that energy is normal. Current Psychiatric Medications: [] Abilify 5 mg discontinued 1 week ago., Seroquel 100 mg p.o. nightly (x 2 weeks); Zoloft 100 mg p.o. daily (x 1 year); hydroxyzine 10 mg p.o. at bedtime only Mental Status Examination: [] Patient is a 32-year-old female who is casually dressed and groomed with good hygiene and appears normal for stated age and is ambulatory with a normal gait. She has no psychomotor agitation or retardation. Eye contact is good and speech is normal rate and rhythm and fluent with no pressure. Mood is euthymic. Affect is full and normal or mildly constricted. Thought process is goal-directed and organized. Thought content: There is no evidence of passive thoughts of , suicidal ideation, plan for suicide, homicidal ideation, hallucinations, delusions or symptoms of donna. Reality testing is intact. Intelligence is above average. Judgment is intact. Insight Limited but some present. Impulsivity high. Diagnoses: [] 1. Bipolar 1 disorder, most recent episode depression in partial remission (F31.75) 2. PTSD 3. Generalized anxiety disorder 4. 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 Status post recent spontaneous May 23, 2023 which triggered depression and impulsive actions Plan: [] The patient will continue the IOP at [facility] as the structure, support, education and group therapy will hopefully prevent worsening of the patient's symptoms which could require rehospitalization. The patient felt safe during the interview and if it anytime she does not feel safe she will let us know or go to the emergency room. The risk, options, possible complications and side effects of the medications including weight gain with Seroquel were discussed again with the patient and she understands and accepts these. She will stay off the Abilify as he has done well off of it. The patient will agrees to increase the Seroquel to 150 mg p.o. nightly and prescription is sent in for this. In addition we will decrease the Zoloft to 50 mg p.o. daily in the hopes of decreasing her cycling and the tendency for an antidepressant to trigger hypomania and bipolar 1 patients. I will see the patient in follow-up in 2 weeks and she will continue to follow-up with her outpatient providers. The patient will continue to look for signs of hypomania or donna and will let us know if these develop. Plan is to slowly increase the Seroquel probably to 200 mg at next appointment to serve as a mood stabilizer and treatment for bipolar depression.
--- NOTE | 2023-08-26 09:00 | BH.SGPN.GN ---
Behaviors/Verbalizations/Mental Status: []Pt alert and oriented, neatly dressed and groomed. Eye contact good. Motor activity appropriate. Speech within normal limits. Affect congruent, mood euthymic. Thoughts linear, logical, no signs of hallucinations or delusions. Reviewed pt?s symptom tracker, no risk for suicidal ideation, plan, or intent 08/26/23 Client Response/Progress/Benefit: []Pt responded well to session, attentive and providing support to peers. Pt reports feeling mellow and excited this morning sharing I've been in such a good state of mind lately, I hope it lasts. Pt stated she has been motivated and more engaged with her which has improved their relationship. Pt stated she has also been using healthy coping skills consistently since starting IOP including dialectical thinking and affirmations. 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 Pt expressed worry that she will not be able to maintain, but she received support from group which pt appeared to benefit from. Pt will continue IOP tx to promote mood stability, improve distress tolerance, and increase application of healthy coping skills. Narrative Note: []
--- NOTE | 2023-08-26 10:15 | BH.SGPN.GN ---
Behaviors/Verbalizations/Mental Status: [] Eye contact is good. Motor activity is appropriate. Appearance is casual. Speech is Appropriate. Mood is euthymic. Affect is congruent. Thoughts are linear and logical. No evidence of psychosis. Client Response/Progress/Benefit: [] Client was an active participant during interactive group discussions. Attentive during psychoeducation on the six types of boundaries (physical, emotional, intellectual, sexual, time, and material) AEB note-taking. Along with peers contributed to interactive discussion on defining what a boundary is in mental health. Client along with peers identified challenges to setting boundaries which included; lack of self awareness, guilt, generational cycles, fear of disappointing the other person, etc. Client along with peers identified the benefits to setting boundaries such as increased identify of self, genuine relationships, self-care, and increased confidence. Group discussed the mental health benefits to establishing boundaries at work, school, and home. Client benefited from increased awareness and insight on the importance/benefit to setting health boundaries. Will continue in IOP to prevent decompensation, increase self worth, and increase emotional regulation. Narrative Note: []
--- NOTE | 2023-08-26 12:04 | BH.MDN_ITS ---
Multi-Disciplinary Note Note 45-min Individual: Time Started:: 11:10 Date: 08/26/23 Purpose of session/treatment goals addressed:: To work on goal #2 of pt's tx plan and to rehearse effective communication techniques. Eye Contact:: Good Motor Activity:: Appropriate Appearance:: Neat Speech:: Appropriate Mood:: Euthymic Affect:: Full Thoughts:: Linear, Logical and No evidence of hallucinations/delusions noted Staff Interventions:: thought challenging, CBT techniques, mindfulness skills, strengths perspective, goal setting, taught coping skills and other (rehearsed what pt wants to communicate with her .) Client Response:: Pt responded well to session, open to meeting with therapist. Pt reports she has been doing much better and she does not feel she is manic. Pt completed homework from last session which went over different are as in functioning and had pt identify what this looks like when pt is depressed, manic, and at her baseline. Pt shared she had her look at it as well and they both found it helpful. Pt stated after completing the worksheet it gave pt more of an idea of what her baseline looks like and this led to a discussion of pt communicating needs and warning signs with her . Pt stated for belen og, there are times when pt will want to lay in bed one more and be lazy and my gets upset. Discussed how pt's may associate certain behaviors with depression and this is an opportunity for pt to talk to him to clarify. Pt wrote down what she wanted to address with her including sleeping in at times, coloring her hair, and not wanting to be as social some days. Pt gained insight that not all behaviors are insight, it has to do more with the amount and the length pt engages in certain behaviors. Pt plans to talk with her this weekend. Risks/Concerns:: No report of suicidal ideations or thoughts of . Progress Toward Goals/Plan:: Pt is making progress towards her tx goals AEB pt's self-report of improved functioning at home, improving relationship with her , and reduced depressive symptoms. Pt reports applying coping skills outside of IOP tx and finding benefit in these. Pt wants to continue to work on improving her communication with her and reducing negative thinking patterns. Pt to continue IOP tx to promote gains, further reduce negative thinking patterns, and improve mood stability. Time Stopped:: 11:55
--- NOTE | 2023-08-29 10:15 | BH.SGPN.GN ---
Behaviors/Verbalizations/Mental Status: []Pt alert and oriented, neatly dressed and groomed. Eye contact good. Motor activity appropriate. Speech within normal limits. Affect congruent, mood euthymic. Thoughts linear, logical, no signs of hallucinations or delusions. Client Response/Progress/Benefit: [] Pt responded well to session, contributing to discussion, and engaged during the activity. Group identified the benefits of change which included: increased confidence, improving mental health, and making progress. Worked with the group to identify barriers to change, which included: uncomfortable emotions such as anxiety and fear, lack of energy, worried about what others will think, and fear of the unknown. Pt participated along with group in activity where they identified and discussed the emotions related to change. Pt connected with peers that one can have many conflicting emotions when faced with change. Benefited from increased awareness and understanding of emotions, benefits, and barriers related to change. Will continue IOP tx to promote mood stability, reinforce use of healthy coping skills, and improve self-confidence. Narrative Note: []
--- NOTE | 2023-08-29 11:10 | BH.SGPN.GN ---
Behaviors/Verbalizations/Mental Status: [] Client alert and oriented, casually dressed and groomed. Eye contact good. Motor activity appropriate. Speech within normal limits. Affect congruent, mood content. Thoughts linear, logical, no signs of hallucinations or delusions. Client Response/Progress/Benefit: [] Client responded well to session, attentive. Did well to process activity and work with group to relate the strategies used to overcome barriers in the activity to managing change in own life. Client identified a change they are struggling with is accepting being on probation. Client identified currently being in preparation stage for this particular change. Client stated their goal is to practice using opposite action when tempted to give up. Appeared to benefit from identifying a small goal to work towards. Client will continue IOP tx to prevent decompensation, decrease thoughts that lead to depressive symptoms and increase overall functioning. Narrative Note: []
--- NOTE | 2023-08-30 09:05 | BH.SGPN.GN ---
Behaviors/Verbalizations/Mental Status: [] Eye contact is good. Motor activity is appropriate. Appearance is casual. Speech is Appropriate. Mood is euthymic. Affect is full. Thoughts are linear and logical. No evidence of psychosis. Reviewed daily check in sheet and no reports of suicidal ideations or intent. Client Response/Progress/Benefit: [] Pt participated at times during the group discussion. Attentive. Daily symptom tracker notes 3/5 for depression and 2/5 for anxiety/irritability. Able to identify mental health wins and healthy habits. Emotion for today is happy. Upcoming stressor of visiting her family whom she reports are generally not supportive and don't believe in mental health struggles. Elaborated on how this can impact her self-esteem, relationships, and mental health. Increased purpose, engagement, and energy this past week. Utilizing skills like opposite-action and behavioral activation. Also reports challenging and reframing her thoughts which has helped throughout the day. Progress noted. Benefited from group support, encouragement, and feedback. Will continue in IOP to prevent decompensation, increase healthy coping, and improve functioning. Narrative Note: []
--- NOTE | 2023-08-31 09:00 | BH.SGPN.GN ---
Behaviors/Verbalizations/Mental Status: [] Pt alert and oriented, neatly dressed and groomed. Eye contact good. Motor activity appropriate. Speech within normal limits. Affect congruent, mood stressed. Thoughts linear, logical, no signs of hallucinations or delusions. Reviewed pt?s symptom tracker, no risk for suicidal ideation, plan, or intent 08/31/23 Client Response/Progress/Benefit: []Pt responded well to session, attentive and listening to peers. Pt reports feeling stressed this morning because she found out her credit card information was stolen, but she stated she handled it better than she would have in the past. Pt was able to take care of the issue this morning prior to IOP and made it on time. Pt gave herself credit for this as well as for handling stressors better than she has before. Pt appeared to benefit from reflecting on her application of coping skills and peer feedback. Pt will continue IOP tx to promote mood stability, increase distress tolerance, and improve self-confidence. Narrative Note: []
--- NOTE | 2023-08-31 10:10 | BH.SGPN.GN ---
Behaviors/Verbalizations/Mental Status: [] Eye contact is good. Motor activity is appropriate. Appearance is casual. Speech is Appropriate. Mood is euthymic. Affect is full. Thoughts are linear and logical. No evidence of psychosis. Client Response/Progress/Benefit: [] Client responded well to session AEB sharing and listening attentively to others. Group identified types of social support (family, pets, professionals, spiritual, etc) and provided examples of benefits of having social support, including: decreased stress, increased self-esteem, encouragement, distraction, etc. Client also participated in group discussion regarding the barriers to accessing support such as: lack of awareness, lack of trust, and low self-esteem. Client participated in experiential activity illustrating the impact communication, boundaries, and patience play in creating healthy support systems. Client appeared to benefit from increased knowledge of the benefits of social support and greater self-awareness. Will continue IOP to prevent decompensation, stabilize mood, and increase healthy coping strategies. Narrative Note: []
--- NOTE | 2023-08-31 11:10 | BH.SGPN.GN ---
Behaviors/Verbalizations/Mental Status: [] Client alert and oriented, casually dressed and groomed. Eye contact good. Motor activity appropriate. Speech within normal limits. Affect congruent, mood euthymic. Thoughts linear, logical, no signs of hallucinations or delusions. Client Response/Progress/Benefit: [] Client was an active participant throughout AEB contributing to discussion, providing personal examples, and taking notes. Client processed emotions felt in the activity and how they coped in the moment. Client provided input during discussion on the types of support our supports can provide. Client able to identify current support system and barriers that get in the way of using supports by drawing out their own support net. Client reported after identifying what type of supports they receive; they gained awareness that they could benefit from more tangible supports. Client identified steps to achieve this by challenging herself to ask for help around the house from her partner when feeling overwhelmed. Client shared increasing tangible supports will help them become more more emotionally regulated as well. Client seemed to benefit from identifying the type of support client needs to work on improving. Client recommended to continue IOP tx to promote continued application distress tolerance skills and increase emotional regulation skills. Narrative Note: []
--- NOTE | 2023-09-02 10:10 | BH.SGPN.GN ---
Behaviors/Verbalizations/Mental Status: [] Eye contact is good. Motor activity is appropriate. Appearance is casual. Speech is Appropriate. Mood is euthymic. Affect is congruent. Thoughts are linear and logical. No evidence of psychosis. Client Response/Progress/Benefit: [] Pt receptive of session, actively engaged throughout AEB taking notes, providing input, and contributing in small group discussion. Appeared to connect with group topic of automatic thoughts and cognitive distortions and the impact of thought patterns on mental health, coping behaviors, and relationships. This particular group is very heavy on psychoeducation however pt appeared to connect with distortions and how they can impact functioning. Pt appeared to benefit from gaining insight on distorted thinking patterns and how this impacts overall mental health. Will continue IOP to promote use of healthy coping skills, increase confidence, and prevent decompensation.
--- NOTE | 2023-09-02 10:51 | BH.MDN ---
Multi-Disciplinary Note Note 30-min Individual: Time Started:: 09:35 Date: 09/02/23 Purpose of session/treatment goals addressed:: To work on goal #1 of pt's tx plan and to review pt's response to tx at review. Eye Contact:: Fair Motor Activity:: Appropriate Appearance:: Neat Speech:: Appropriate and Soft Mood:: Anxious and Other (stable) Affect:: Congruent Thoughts:: Linear, Logical and No evidence of hallucinations/delusions noted Staff Interventions:: thought challenging, CBT techniques, strengths perspective, reviewed DSM-5, goal setting, taught coping skills (reviewed communication skills and boundary setting ) and other (gave pt homework on core beliefs) Client Response:: Pt responded well to session, open to meeting with therapist. Pt reports she is doing well still overall, but she is a little anxious today because she is going to visit her family this weekend and she and her had an argument recently. Pt stated her found out she was vaping for the past four months and pt did not tell him. Pt has struggled with lying to her in the past and this is a source of contention. Pt is working on being more open and honest, but she recognizes she is a work in progress. Pt stated she thinks having the weekend apart will be helpful and she was encouraged to continue the conversation when she returns instead of avoiding. Pt shared she wants to work on being a better communicator and pt receptive to the acronym TEAM to share with her . Pt feels anxious about this weekend, but she is preparing to see her family and plans to have boundaries in place this time. Pt plans to set boundaries with her brothers and her grandma. Pt also feels that taking her dog will be helpful as well as changing up what she listens to while she drives. Pt agrees to the homework on core beliefs. Risks/Concerns:: Pt denies any SI or thoughts of . Progress Toward Goals/Plan:: Pt is making progress towards her tx goals AEB her reduction of DSM-5 scores by 21% since admission and her self-report of a more stable mood for the past two weeks. Pt's biggest stressor is her relationship with her . Pt continues to report mild-moderate depressive symptoms as well as anxiety symptoms. Pt will continue IOP tx to prevent decompensation, increase application of coping skills, and further improve daily functioning. Time Stopped:: 10:05
--- NOTE | 2023-09-02 10:52 | BH.MTP_ITS ---
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 Pt contributes well during individual sessions and she is engaged during group sessions. Pt applies coping skills outside of IOP and reports overall mood is improved and pt is functioning better than she was three weeks ago. Status of Current Problems and Symptoms: Pt's symptoms are improving, but pt still reports symptoms of depression and anxiety that are moderate. Pt's relationship with her is improving, but there is still conflict and communication issues that impact pt's mental health. Pt also still has grief triggers, negative thought patterns, and stressors that impact her mood. Progress Problem #1: Problem Name:: Depression, hopelessness, worthlessness, and thoughts of . Status of Goals:: Objective 1- complete with ongoing work encouraged. Pt?s DSM-5 scores for depression has decreased by 20% since admission and pt's anger has decreased by 50%. Pt reports using opposite action, thought challenging, ta natalie on small tasks each day, taking her medications consistently, and stretching. Objective 2- in progress. Pt is working on catching distortions and using more positive self-talk. Pt has responded well to dialectical thinking and affirmations. Team Recommendations:: Tx team recommends that pt continue working on these goals as pt can benefit from identifying and reframing distortions and utilizing healthy coping skills. Pt is also encouraged to continue working on assertive communication skills to improve interpersonal relationships. Problem #2: Problem Name:: Anxiety and PTSD Status of Goals:: Objective 1- complete with ongoing work encouraged. Pt?s DSM-5 scores for anxiety have decreased by 33% since admission. Pt reports using deep breathing and opposite action to manage anxiety. Objective 2- in progress. Pt is continuing to improve her communication skills and delaying her responses to reduce impulsivity. Team Recommendations:: Pt is encouraged to continue working on this goal as pt can further reduce anxiety and increase distress tolerance skills. Pt encouraged to continue working on boundary setting and self-care.
--- NOTE | 2023-09-02 11:10 | BH.SGPN.GN ---
Behaviors/Verbalizations/Mental Status: []Pt alert and oriented, neatly dressed and groomed. Eye contact good. Motor activity appropriate. Speech within normal limits. Affect congruent, mood euthymic. Thoughts linear, logical, no signs of hallucinations or delusions Client Response/Progress/Benefit: [] Pt was an active participant during group discussion. Pt was placed in a smaller group and participated in combatting example distortions with peers. Pt was engaged in the smaller group, participated in group interactions to brainstorm answers, and appeared to be comprehending cognitive distortions. Stated they connect a lot with mind-reading, jumping to conclusions, and catastrophizing. Pt gave an example of mind-reading leading to assuming someone ?hates you.? Benefited from gaining further insight and awareness of cognitive distortions as well as practicing ways to reframe and challenge thoughts. Will continue in IOP tx to promote mood stability, combat distortions, and improve interpersonal effectiveness skills. Narrative Note: []
--- NOTE | 2023-09-05 09:05 | BH.SGPN.GN ---
Behaviors/Verbalizations/Mental Status: [] Eye contact is good. Motor activity is appropriate. Appearance is casual. Speech is Appropriate. Mood is anxious. Affect is congruent. Thoughts are linear and logical. No evidence of psychosis. Reviewed daily check in sheet and no reports of suicidal ideations or intent. Client Response/Progress/Benefit: [] Pt participated at times during the group discussion. Attentive. Daily symptom tracker notes 07/11 for depression and anxiety. States I feel out of my body today. Elaborates on dissociation. Able to identify mental health wins and healthy habits over the weekend. She reports that she set boundaries and practiced assertive communication with her family over the weekend. Also states I pulled myself out of a panic attack by utilizing certain mindfulness skills. Stressor was experiencing triggers related to recent miscarriage. Progress noted per pt report. Benefited from group support, encouragement, and feedback. Will continue in IOP to stabilize mood, improve functioning, and increase health coping skills. Narrative Note: []
--- NOTE | 2023-09-05 10:15 | BH.SGPN.GN ---
Behaviors/Verbalizations/Mental Status: []Pt alert and oriented, neatly dressed and groomed. Eye contact good. Motor activity appropriate. Speech within normal limits. Affect congruent, mood euthymic. Thoughts linear, logical, no signs of hallucinations or delusions. Client Response/Progress/Benefit: [] Pt was engaged and an active participant in group discussions. Attentive during psychoeducation and participated in group activity. Group discussed what contributes to a person?s perspective and how perspective can positively or negatively impact mental health treatment. Participated in group discussion on things that can interfere with perspective and pt reflected on their perspective today vs when they started IOP. Pt stated her perspective is now more hopeful and optimistic, but when she first started she was ?very skeptical of group therapy.? Pt is recognizing this more and is actively working on combatting this. Pt appeared to benefit from increasing awareness of different perspectives and how they can affect mental health. Pt will continue IOP tx to promote mood stability, reduce negative thinking patterns, and improve communication skills. Narrative Note: []
--- NOTE | 2023-09-05 11:15 | BH.SGPN.GN ---
Behaviors/Verbalizations/Mental Status: []Pt alert and oriented, casually dressed and groomed. Eye contact good. Motor activity appropriate. Speech within normal limits. Affect congruent, mood euthymic and anxious. Thoughts linear, logical, no signs of hallucinations or delusions. Client Response/Progress/Benefit: []Pt was attentive and contributed to group discussion. Pt worked with group to identify strategies that can help with challenging negative perspective. Pt completed strengths exploration worksheet, identifying empathy, love, humor, gratitude, and athleticism as personal strengths. Pt able to acknowledge how these strengths are helping pt and can continue to help pt in mental health journey. Pt identified wanting to work on using strength of gratitude to challenge her perspective and reflect on the progress she has made through daily affirmations. Benefited from identifying personal strengths and strategies for enhancing use of identified strengths. Pt will continue IOP tx to work on application of stress management skills, improve mood stability, and prevent decompensation. Narrative Note: []
== END 2023-09-06 23:59 ==
LOC: BHIOP 08:00
PROVIDERS: Referring Provider Psychiatry & Neurology Psychiatry; Visit Provider Psychiatry & Neurology Psychiatry
DX: F31.75 Bipolar disorder, in partial remission, most recent episode depressed (principal); F43.10 Post-traumatic stress disorder, unspecified; F41.1 Generalized anxiety disorder; F14.91 Cocaine use, unspecified, in remission; Z79.899 Other long term (current) drug therapy
CPT/HCPCS: S9480; 90832; 90834; 90853

== ENCOUNTER → 2023-08-15 | Outpatient (CLI) | payer OTHER, SELFPAY ==
[2023-08-15 13:08] LABS: Progesterone Level 0.62 ng/mL (See Comment); hCG Titer Quant., Serum < 1 mIU/mL (1-3)
[2023-08-15 13:10] LABS: Hemoglobin A1c 5.2 % (3.8-5.6)
[2023-08-15 13:16] LABS: Cholesterol 142 mg/dL (200); High Density Lipoprotein 42 mg/dL; T4 Free Direct 0.75 ng/dL (0.76-1.46); Thyroid Stim Hormone (TSH) 1.13 uIU/mL (0.358-3.74); Triglycerides 164 mg/dL; Very Low Density Lipoprotein 33 mg/dL (5-40)
== END | disposition home or self-care (01) ==
PROVIDERS: Referring Provider Registered Nurse; Visit Provider Registered Nurse
DX: N92.6 Irregular menstruation, unspecified (principal); Z87.42 Personal history of other diseases of the female genital tract
CPT/HCPCS: 36415; 80061; 82627; 83036; 84144; 84402; 84439; 84443; 84702; 82626

== ENCOUNTER 2023-09-07 06:32 | Outpatient (RCR) | payer OTHER, SELFPAY ==
[2023-09-07 00:29] VITALS: BP 132/88; PULSE 69
--- NOTE | 2023-09-07 09:01 | BH.SGPN.GN ---
Behaviors/Verbalizations/Mental Status: [] Eye contact is good. Motor activity is appropriate. Appearance is casual. Speech is Appropriate. Mood anxious. Affect is congruent. Thoughts are linear and logical. No evidence of psychosis. Reviewed daily check in sheet and denies suicidal ideation, plan, or intention. Client Response/Progress/Benefit: [] Pt was an active participant in group discussions. Attentive. Patient reported she woke up and felt in a sour mood but use opposite action to get herself to come to IOP today because she knows it makes herself feel better. Patient stated she already can note that her mood has not shifted to feeling more content compared to how she was feeling when she first woke up. Patient stated additional mental positive beyond utilizing opposite action this morning was making her mom's favorite meal and a way to honor her mom. Patient reported current stressor as being invited to go to a republican but does not feel like she is ready quite yet. Benefited from group support, encouragement, feedback. Will continue in IOP to continue building confidence, maintaining gains, and prevent decompensation.
--- NOTE | 2023-09-07 10:10 | BH.SGPN.GN ---
Behaviors/Verbalizations/Mental Status: []Pt alert and oriented, appropriate grooming/appearance. Eye contact good. Motor activity appropriate. Speech within normal limits. Affect congruent, mood content. Thoughts linear, logical, no signs of hallucinations or delusions. Client Response/Progress/Benefit: []Pt was an active participant in group discussions. Attentive during psychoeducation. Contributed during interactive discussions in which peers attempted to define crisis. Pt identified examples of potential crisis. Group also worked together to identify unhealthy responses to crisis which included; isolation, self-harm, substance abuse, avoidance, and distraction. Pt identified personal warning signs as increased risk taking, decreased self-confidence, and impulsivity. Benefited from increased understanding of crisis and awareness of personal responses to crisis. Pt will continue IOP tx to reduce impulsive behaviors, increase healthy coping, and prevent decompensation. Narrative Note: []
--- NOTE | 2023-09-07 12:19 | PCM.BH.PN ---
Progress Note Progress Note: History of Present Illness/Interim History: The patient is a 32-year-old female with a history of bipolar 1 disorder, PTSD, anxiety, cocaine and heroin use disorder (sober x 12 years) who is seen in follow-up at the [facility] behavioral health IOP. I last saw the patient 2 weeks ago and at that time Seroquel dose was increased and her Zoloft was decreased. The patient states that she is doing well and the increase Seroquel has helped her sleep improved she is not waking up as much at all. According to staff she has been consistent in and engaged in the program and is making progress. She states that her mood is at baseline normal which is euthymic a very mildly depressed only. She denies any urges to anderson or any over spending of money. She is sleeping about 6 to 7 hours a night. She denies any symptoms of hypomania or donna. She has had 2 drinks per week in the past 2 weeks only of alcohol. She denies any impulsive behavior such as the stealing from work that resulted her in her being fired and now being on probation for 1 year. The patient states that her also feels she is better. Current Psychiatric Medications: [] Seroquel 150 mg (increased 2 weeks ago); Zoloft 50 mg p.o. daily (decreased 2 weeks ago); hydroxyzine 10 mg p.o. nightly; Abilify discontinued 3 weeks ago. Mental Status Examination: [] The patient is a 32-year-old female who is casually dressed and groomed with good hygiene and ambulatory with a normal gait. She has no psychomotor agitation or retardation. Eye contact is good and speech is normal rate and rhythm and fluent with no pressure. Mood is euthymic. Affect is full and normal. Thought processes goal-directed and organized. Thought content: Patient is hopeful for the future. There is no evidence of passive thoughts of , suicidal ideation, plan for suicide, homicidal ideation, hallucinations, delusions, symptoms of donna or hypomania. Reality testing is intact. Judgment is intact. Insight Limited but some present. Impulsivity high. Diagnoses: [] 1. Bipolar 1 disorder, most recent episode depression and partial remission (F31.75) 2. PTSD 3. Generalized anxiety disorder 4. 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 Recent legal issues: On probation 6. Status post recent spontaneous May 23, 2023 which triggered depression and impulsive actions Plan: [] The patient will continue the IOP in behavioral health at [facility] as the structure, support, education and group therapy will hopefully prevent worsening of the patient's symptoms which could require rehospitalization. She felt safe during the interview and if it anytime she does not feel safe she agrees to let us know or go to the emergency room. The risk, options, possible complications and side effects of the medications were again discussed with the patient and she understands and accepts these. She agrees to increase her Seroquel to 200 mg p.o. nightly because we need to get the dose high enough to prevent any hypomania or donna episodes and it is a treatment for bipolar depression. She will discontinue the Zoloft in 1 week as an antidepressant such as Zoloft might increase her cycling and/or trigger hypomanic or manic episodes. She will continue to follow-up with her outpatient providers and I will see the patient in follow-up in 2 weeks.
--- NOTE | 2023-09-09 09:00 | BH.SGPN.GN ---
Behaviors/Verbalizations/Mental Status: [] Eye contact good. Motor activity appropriate. Speech within normal limits. Affect congruent, mood content. Thoughts linear, logical, no signs of hallucinations or delusions. Reviewed client?s symptom tracker, denies SI, plan, or intent as of 09/09/2023. Client Response/Progress/Benefit: [] Client receptive of session, attentive and willing to process with group. Identified mental health ?wins? today as engaging in healthier eating habits and physical activity, resulting in a loss of 18 pounds. Notes she typically struggles with doing this the unhealthy way and is proud of a realistic approach to weight loss. 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 Reports this gave her an opportunity to spend time out of the house with healthy people. Current stressor noted as her cat's recent cancer diagnosis. Did well to identify several skills she can utilize to accept and cope with this news. Was receptive of group support. Recommended continued IOP tx to continue to promote mood stability, as well as consistent skill application, and prevent decompensation. Narrative Note: []
--- NOTE | 2023-09-09 10:20 | BH.SGPN.GN ---
Behaviors/Verbalizations/Mental Status: []Pt alert and oriented, casually dressed and groomed. Eye contact poor. Motor activity appropriate. Speech within normal limits. Affect congruent, mood engaged and clam. Thoughts linear, logical, no signs of hallucinations or delusions. ? Client Response/Progress/Benefit: []Pt responded well to session, attentive and engaged. Pt participated in activity where pts had to guess the celebrity with a known mental health diagnosis and this led to discussion on self-stigma. Group participated in the discussion defining stigma as well as what stigma has kept pt's from doing in their lives. Pt stated mental health stigma has led pt to feel lazy, attention seeking, and like I'm not doing enough. Pt has been working on overcoming internal and societal stigma, and acknowledged that internal stigma has been harder to combat. Pt shared in her family there was a lot of mental health stigma pt has had to try and overcome. Pt worked with peers to begin discussion of what reinforces stigma and this was discussed further in the next group. Pt appeared to benefit from learning about the different types of stigma as well as gaining awareness of how stigma as personally impacted pt. Pt will continue IOP tx to promote mood stability, combat distortions, and increase self-compassion. Narrative Note: []
--- NOTE | 2023-09-09 11:15 | BH.SGPN.GN ---
Behaviors/Verbalizations/Mental Status: []Client alert and oriented, casually dressed and groomed. Eye contact good. Motor activity appropriate. Speech within normal limits. Affect congruent, mood euthymic. Thoughts linear, logical, no signs of hallucinations or delusions. Client Response/Progress/Benefit:?[] Client engaged participant AEB participating in the activity, providing input during small group discussion, and listening attentively to others. Client appeared to connect with discussion in the benefits of addressing mental health stigma which included: improved relationships, increased willingness to seek help, increased happiness, and improved confidence. Group brainstormed strategies to combat social and perceived stigma. ?Client shared one thing she can personally do to combat stigma is to be more honest with herself about how she is doing. Appeared to benefit from increasing awareness of strategies to combat stigma. Will continue IOP tx to continue working on challenging distorted thoughts, promote healthy coping, and prevent decompensation.
--- NOTE | 2023-09-09 15:33 | BH.MDN ---
Multi-Disciplinary Note Note 45-min Individual: Time Started:: 09:00 Date: 09/09/23 Purpose of session/treatment goals addressed:: To address current stressors and discuss strategies to help cope with these stressors. Another goal was to discuss discharge and aftercare. Eye Contact:: Good Motor Activity:: Appropriate Appearance:: Neat Speech:: Appropriate Mood:: Euthymic and Anxious Affect:: Full Thoughts:: Linear, Logical and No evidence of hallucinations/delusions noted Staff Interventions:: thought challenging, CBT techniques, discharge planning, strengths perspective, goal setting and other (maintenance planning) Client Response:: Pt responded well to session, open to meeting with therapist. Pt's last week of tx is approaching and pt was feeling anxious about this. Pt began expressing why she was not ready, but as pt was sharing, she realized how much progress she has made. Pt stated she is regulating her emotions much better, pt has not been as angry, her sleep is improving but still up and down, and pt feels she applying many coping skills outside of IOP tx. Pt saw her family over the weekend and pt felt that it was one of the best trips she has had with them in years. Pt stated she set boundaries and used calming skills. Pt shared she and her had an argument recently, but they have been working through it and pt is trying to not shut down. Pt reported she also is working on being more vulnerable and communicating with her when things bother her instead of waiting for them to pile up. Pt does want to continue getting better with being assertive and working through conflicts. Pt stated she finally feels that she is at a baseline. Pt receptive to working on a maintenance plan to help pt continue making progress. The maintenance plan will include pt's triggers, warning signs, and coping skills. Pt will also identify self-care practices she wants to continue to engage in daily, weekly, and occasionally. Pt was given this for homework and will work on this next session. Risks/Concerns:: No report of thoughts of or SI. Progress Toward Goals/Plan:: Pt continues to make progress towards her tx goals and after discussion today, pt recognizes how much better she is feeling. Pt reports I don't think I'm manic at all, I think I'm stable. Pt has some stressors that she wants to continue to work through including communication with her and gaining social support. Pt will continue IOP tx to promote gains, establish aftercare, and improve daily functioning. Time Stopped:: 09:40
--- NOTE | 2023-09-12 09:05 | BH.SGPN.GN ---
Behaviors/Verbalizations/Mental Status: [] Eye contact good. Motor activity appropriate. Speech within normal limits. Affect congruent, mood euthymic. Thoughts linear, logical, no signs of hallucinations or delusions. Reviewed client?s symptom tracker, denies SI, plan, or intent as of 09/12/2023. Client Response/Progress/Benefit: [] Client receptive of session, attentive and willing to process with group. Identified mental health ?wins? today as challenging herself to manage her emotions when her messed up grooming their dog. Did well to view this with humor rather than get angry or upset. Additional win noted as practicing dialectical thinking when struggling with her emotions over the weekend. Reports this is improvement as in the past she would feed into her initial thought/emotion. Current stressor noted as upcoming IOP d/c. Did well to identify several skills she can utilize to continue to improve her ability to manage her emotions and self-reflected upon coping skills to utilize. Receptive of suggestions by the group. Recommended continued IOP tx to continue to promote mood stability, as well as consistent skill application, and prevent decompensation. Narrative Note: []
--- NOTE | 2023-09-12 10:10 | BH.SGPN.GN ---
Behaviors/Verbalizations/Mental Status: [] Eye contact is good. Motor activity is appropriate. Appearance is casual. Speech is Appropriate. Mood is euthymic. Affect is full. Thoughts are linear and logical. No evidence of psychosis. Client Response/Progress/Benefit: [] Client receptive to session AEB providing input throughout, listening attentively to others, and taking notes. Attentive throughout psychoeducation on the cognitive triangle and maintenance cycles. Engaged in group discussion reviewing the impact of daily activities and behaviors in either reinforcing unhealthy maintenance cycles and depression or assisting in reducing symptoms (?down? vs ?up? activities). Client identified common ?down? activities they engage in which included; neglecting responsibilities and excessive time on social media. Common ?Up? activities client identified included: taking walks and bubble baths. Appeared to benefit from increased awareness of current behaviors and impact these have on mental health. Will continue in IOP to stabilize mood, increase healthy coping, and to prevent decompensation. Narrative Note: []
--- NOTE | 2023-09-12 11:10 | BH.SGPN.GN ---
Behaviors/Verbalizations/Mental Status: []Eye contact is good. Motor activity is appropriate. Appearance is neat. Speech is Appropriate. Mood is euthymic. Affect is congruent. Thoughts are linear and logical. No evidence of psychosis. Client Response/Progress/Benefit: [] Pt responded well to session, attentive and engaged in group discussions and activity. Group discussed values and the benefits that knowing one's values can have on one's mental health. Pt explored own values and identified personal top values. Pt stated a personally important value is marriage. Pt set a goal to improve engagement in this value. Goal identified as setting up a date or evening at home to spend quality time reconnecting with her . Pt appeared to benefit from exploring values and creating a weekly goal. Pt also reported benefitting from the activity and the group encouragement today. Will continue in IOP to continue use of healthy coping skills, challenge distortions, and prevent decompensation.
--- NOTE | 2023-09-16 09:00 | BH.SGPN.GN ---
Behaviors/Verbalizations/Mental Status: []Eye contact good. Motor activity appropriate. Speech within normal limits. Affect congruent, mood anxious. Thoughts linear, logical, no signs of hallucinations or delusions. Reviewed client?s symptom tracker, SI within baseline, denies plan, or intent. Client Response/Progress/Benefit: [] Client receptive of session, attentive and willing to process with group. Client reported she is excited to finally have a weekend with no plans. Client stated she's going to focus on relaxing and spending time with her . Client stated additional positive was signing up to do a research study in regards to her mental health, which is something she has been curious about. Client stated additional mental health positive as setting boundaries with her family. Client shared current stressor is her time in IOP is coming to an end. Client seemed to benefit from support from peers. Recommended continued IOP tx to promote use of healthy coping skills, challenge negative/distorted thoughts, and prevent decompensation.
--- NOTE | 2023-09-16 10:10 | BH.SGPN.GN ---
Behaviors/Verbalizations/Mental Status: [] Eye contact is good. Motor activity is appropriate. Appearance is casual. Speech is Appropriate. Mood is anxious. Affect is congruent. Thoughts are linear and logical. No evidence of psychosis Client Response/Progress/Benefit: [] Client was an active participant in group discussion and experiential activity. Attentive during psychoeducation on resilience. Participated during interactive discussion with peers on the definition of resilience. Group worked together to identify what can impact one's ability to be resilient which included; relationships. past experiences, trauma, support system, lack of resources,and current mental/physical health state. Group also worked together to identify the benefits of being resilient which included; increased self-worth, increased ability to cope, personal growth, can inspire others, and increased confidence. Able to relate experiential activity of group juggle to topics of resilience. Worked well with peers in small group in which they identified factors that contribute to resilience. Benefited from increased awareness of resilience and the factors that contribute to building resilience. Will continue in IOP to precent decompensation, stabilize mood, and increase healthy coping. Narrative Note: []
--- NOTE | 2023-09-16 11:10 | BH.SGPN.GN ---
Behaviors/Verbalizations/Mental Status: []Pt alert and oriented, casually dressed and groomed. Eye contact good. Motor activity appropriate. Speech within normal limits. Affect congruent, mood content. Thoughts linear, logical, no signs of hallucinations or delusions. Client Response/Progress/Benefit: []Pt responded well to session AEB completing the resilience worksheet provided. Pt participated in the discussion and worked cooperatively with group to identify strategies to enhance each of the components discussed. Pt reports belief they already use resilience trait of??make connections? and ?maintain a hopeful outlook?. Pt stated they would like to continue to develop resilience trait of ?Take decisive action? as pt feels she would benefit from incorporating small thought out decisions into daily life. Pt seemed to benefit from discussing strategies for improving personal resilience and identifying resilience traits pt already possesses. Will continue IOP tx to prevent decompensation, improve daily functioning, and increase emotion regulation skills.? Narrative Note: []
--- NOTE | 2023-09-21 09:14 | BH.AFTERPLAN ---
Aftercare Plan Demographics Treatment End Date:: 09/21/23 Psychiatrist:: Monika Stewart Psychiatrist Office #:: [id number] [facility]/IOP Therapist:: Rani Carvalho Therapist Phone #:: [phone] Medications Home Medications hydroxyzine HCl 10 mg tablet 10 mg PO QHS 04/13/23 quetiapine 200 mg tablet (Seroquel) 200 mg PO QHS 30 days #30 tabs 09/07/23 Plan Details Progress/Aftercare Plan Details:: Rosa has responded well to treatment as evidenced by Rosa consistently attending IOP sessions and her reduction of DSM-5 scores since admission. Rosa was always attentive and receptive to learning during group and individual sessions. Rosa actively applied coping skills outside of IOP and reports overall her mood is improved and she is functioning better than she was several months ago. Rosa?s overall symptom reduction is 63% since admission with anger decreasing by 75%, depression decreasing by 67%, and anxiety decreasing by 67%. Rosa has increased self-compassion and faced many hard things. Most importantly, Rosa has become more vulnerable, assertive, and confident in her abilities. Strategies for Success:: 1. Opposite action! Continue to break that cycle of anxiety, guilt, and depression by not letting emotions be the only drivers of your bus. 2. Remember that thoughts are thoughts NOT facts! You have power in if you give thoughts the time of day or not. 3. self-care! You deserve to take time for you and you also deserve to face the not so fun self-care like setting boundaries and advocating for your needs 4. Self-compassion! You are human and you will make a mistake?BUT that doesn?t mean you are a failure or not good enough. Give yourself credit for all the wonderful things you do. 5. Continue to practice acceptance and remember acceptance means loving this version of you 6. Practice positive self-talk and keep track of your wins. 7. Remember progress isn?t linear! You may have a setback or bump in the road, but that doesn?t mean you?ve lost all progress. 8. self-reflection and self-awareness. 9. Be understanding with yourself and try to see the whole picture, not just the snapshot. 10. Live in the thakkar!! Appointments Appointments/Referrals to Other Services:: 1. Aftercare starting 09/29/23 from 2:00-3:30pm 2. Follow up with your counselor on 09/27/23 3. PCP for medication management.
--- NOTE | 2023-09-21 10:10 | BH.SGPN.GN ---
Behaviors/Verbalizations/Mental Status: []Eye contact is good. Motor activity is appropriate. Appearance is casual. Speech is Appropriate. Mood is anxious. Affect is congruent. Thoughts are linear and logical. No evidence of psychosis. Client Response/Progress/Benefit: [] Pt was an engaged participant AEB listening attentively to others, taking notes, and providing feedback in small group discussions. Attentive during psychoeducation AEB by note taking and providing some input. Pt worked along with peers in small groups to define inappropriate guilt and appropriate guilt. Interactive discussion on examples of both inappropriate and appropriate guilt. Pt able to connect impact inappropriate guilt can have on MH. Pt gave an example of inappropriate guilt as always saying sorry for forgetting things. Benefited from increased awareness of guilt and the differences between appropriate and inappropriate guilt. Will continue in IOP to promote use of healthy coping skills, challenge distorted/negative thoughts, and prevent decompensation.
--- NOTE | 2023-09-21 11:08 | BH.SGPN.GN ---
Behaviors/Verbalizations/Mental Status: []Pt alert and oriented, casually dressed and groomed. Eye contact good. Motor activity appropriate. Speech within normal limits. Affect congruent, mood content. Thoughts linear, logical, no signs of hallucinations or delusions. Client Response/Progress/Benefit: [] Pt engaged participant AEB listening attentively to others and providing input throughout group. Pt worked within their small group to identify strategies to manage inappropriate guilt. Identified a personal example of inappropriate guilt as ?always saying sorry for forgetting things.? Insight cues a feeling of being a burden because of her mental health. Pt wants to work on combatting inappropriate guilt by challenging emotional reasoning. Pt seemed to benefit from learning about strategies to manage appropriate and inappropriate guilt. Pt will discharge from IOP tx today as pt has accomplished her tx goals and no longer meets criteria for IOP. Narrative Note: []
--- NOTE | 2023-09-21 14:56 | BH.MDN_ITS ---
Multi-Disciplinary Note Note 30-min Individual: Time Started:: 09:15 Date: 09/21/23 Purpose of session/treatment goals addressed:: To address current stressors and discuss strategies to help cope with these stressors. Another goal was to discuss discharge and aftercare. Eye Contact:: Good Motor Activity:: Appropriate Appearance:: Neat Speech:: Appropriate Mood:: Euthymic Affect:: Full Thoughts:: Linear, Logical and No evidence of hallucinations/delusions noted Staff Interventions:: thought challenging, CBT techniques, discharge planning, strengths perspective and reviewed DSM-5 Client Response:: Pt responded well to session, open to meeting with therapist. Pt reports feeling so much better than she did six weeks ago. Pt reflected on her progress while in IOP including more confidence, better eye contact, much less anger/irritability, increase hope, and a lot more optimism. Pt stated her marriage is improving, but she knows they still have work to do with communicating. Pt stated they plan to work on using the TEAM acronym to im prove their communication and connection. Pt also cleared IOP aftercare group with work and pt was pleasantly surprised with how supportive her work was. Pt plans to continue getting counseling and medication management. Reviewed coping skills and self-care strategies pt can use to maintain her gains. Pt identified thought challenging, early communication with her , DDD, and self-talk to help her maintain. Risks/Concerns:: No risks noted. Pt denies any thoughts of , no HI, and no donna. Progress Toward Goals/Plan:: Pt?s overall symptom reduction is 63% since admission with anger decreasing by 75%, depression decreasing by 67%, and anxiety decreasing by 67%. Pt has increased self-compassion and faced many hard things. Most importantly, Pt has become more vulnerable, assertive, and confident in her abilities. Pt will discharge from IOP tx today pt has accomplished her tx goals and no longer meets criteria for IOP level of care. Time Stopped:: 09:35
--- NOTE | 2023-09-21 14:56 | BH.DS_ITS ---
Discharge Summary Demographics Date of Admission:: 08/08/23 Discharge Date: 09/21/23 Presenting Problems at Admission:: Pt is a 32-year-old female with a history of Bipolar Disorder, RUPALI, and PTSD referred to [facility] due to severe anxiety, isolation, and mental health impacting pt's functioning and relationships. Pt had a miscarriage in May 2023 and she reported after this she had a psychotic break. During that time pt reported she was not thinking clearly, had disorganized thoughts, and she was being really reckless. 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 At admission, pt endorsed a depressed mood with low energy, lack of motivation, poor sleep, increased appetite, isolation, anhedonia, and poor concentration. Pt reports panic attacks 2-3 times a week and racing thoughts. Pt's symptoms were impacting her marriage as well as her occupational functioning per pt's report. 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 Pt no longer meets criteria for IOP level of care and will discharge to outpatient counseling. Treatment Progress During Treatment & Response: Pt has responded well to treatment as evidenced by Pt consistently attending IOP sessions and her reduction of DSM-5 scores since admission. Pt was always attentive and receptive to learning during group and individual sessions. Pt actively applied coping skills outside of IOP and reports overall her mood is improved and she is functioning better than she was several months ago. Pt?s overall symptom reduction is 63% since admission with anger decreasing by 75%, depression decreasing by 67%, and anxiety decreasing by 67%. Pt has increased self-compassion and faced many hard things. Most importantly, Pt has become more vulnerable, assertive, and confident in her abilities. Issues Still to be Addressed:: Pt can benefit from ongoing counseling to reinforce healthy coping skills, further improve self-compassion, increase communication skills with her , and promote mood stability. Discharge Recommendations/Instructions:: Pt will follow up with her outpatient therapist, Dianne, at [facility] for individual counseling. Pt sees Dianne on 09/27/23. Pt's PCP has agreed to continue pt's medications. Pt will start IOP aftercare on 09/29/23. Discharge Handout
== END 2023-09-21 12:26 | disposition home or self-care (01) ==
LOC: BHIOP 06:32
PROVIDERS: PCP Psychiatry & Neurology Psychiatry; Referring Provider Psychiatry & Neurology Psychiatry; Visit Provider Psychiatry & Neurology Psychiatry
DX: F31.75 Bipolar disorder, in partial remission, most recent episode depressed (principal); F43.10 Post-traumatic stress disorder, unspecified; F41.1 Generalized anxiety disorder; F14.91 Cocaine use, unspecified, in remission; Z79.899 Other long term (current) drug therapy
CPT/HCPCS: S9480; 90832; 90834; 90853

== ENCOUNTER 2023-09-29 08:00 | Outpatient (RCR) | payer OTHER, SELFPAY ==
--- NOTE | 2023-09-29 14:00 | BH.COMM ---
Communication Note Communication with Client Communication Note: Patient completed IOP and presents today to start relapse prevention group which meets once weekly (1.5 hours) for 8 weeks. Case discussed with Dr. Ramirez with plan to admit with dx of F31.4
--- NOTE | 2023-09-29 14:00 | BH.SGPN.GN ---
Behaviors/Verbalizations/Mental Status: []Pt alert and oriented, casually dressed and groomed. Eye contact good. Motor activity appropriate. Speech within normal limits. Affect congruent, mood content. Thoughts linear, logical, no signs of hallucinations or delusions. Client Response/Progress/Benefit: [] Pt receptive of session, engaged throughout. Pt shared not meeting with outpatient therapist this past week due to scheduling conflicts and has been consistent with meds. Reports the coping skills used throughout the week included: daily affirmations, use of dialectical thinking, and meditation. Receptive of discussion on the three components of the Wellness [place] (social, mental health, and physical) and the importance of balancing each of these areas. Pt contributed to the discussion on the variables impacting each area of wellness including: biology, environment, attitude, behavior, technology, and social support network. Completed an assessment reviewing personal wellness in each pillar of the wellness triangle. Identified wanting to work on physical wellness by maintaining a regular bedtime. Pt seemed to benefit from support from peers and increasing understanding of the relationship between different areas of wellness. Will remain in the aftercare program to maintain gains and prevent decompensation. Narrative Note: []
--- NOTE | 2023-09-29 17:50 | BH.MTP ---
Master Treatment Plan Patient Information Program Physician:: Dr. 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 Objectives Objective #1: Stated Objective: Client will continue to consistently apply healthy coping skills to maintain progress made in IOP tx. Interventions: Through group therapy, client will review warning signs and triggers as well as healthy coping skills learned in IOP tx to successfully maintain gains while transitioning into outpatient therapy. Discharge Criteria: Client will have accomplished this goal when client's score on the DSM-5 cross-cutting measure has maintained or reduced over a 8 week period. Target Date: 11/24/23 Review Date: 10/27/23 Status: open Objective #2: Stated Objective: Client will learn and utilize 2-3 maintenance strategies to prevent decompensation from original IOP DSM-5 scores. Interventions: Through group therapy, client will be provided with education on healthy maintenance behaviors, relapse prevention techniques, and healthy coping strategies. Discharge Criteria: Client will have accomplished this goal when can report using at least 2 maintenance skills to prevent decompensation compared to original IOP DSM-5 scores Target Date: 11/24/23 Review Date: 10/27/23 Status: open
== END 2023-10-07 23:59 ==
LOC: BHOG 08:00
PROVIDERS: Referring Provider Psychiatry & Neurology Psychiatry; Visit Provider Psychiatry & Neurology Psychiatry
DX: F31.75 Bipolar disorder, in partial remission, most recent episode depressed (principal); F43.10 Post-traumatic stress disorder, unspecified; F41.1 Generalized anxiety disorder; F14.91 Cocaine use, unspecified, in remission; Z79.899 Other long term (current) drug therapy
CPT/HCPCS: 90853

== ENCOUNTER 2023-10-10 08:08 | Outpatient (RCR) | payer OTHER, SELFPAY ==
--- NOTE | 2023-10-13 14:00 | BH.SGPN.GN ---
Behaviors/Verbalizations/Mental Status: []Pt alert and oriented, casually dressed and groomed. Eye contact good. Motor activity appropriate. Speech within normal limits. Affect congruent, mood content, positive. Thoughts linear, logical, no signs of hallucinations or delusions. Client Response/Progress/Benefit: []Pt responded well to session AEB sharing and listening attentively to others. Pt has been consistent with outpatient mental health appointments and medication compliance. Pt reports using positive self-talk, taking things easy for her pain, gratitude, and boundary setting to help with managing mental health symptoms. Pt participated in group discussion defining affirmations and why they are important. Pt provided insight throughout clinician?s presentation of tips for writing personal affirmations and wrote their own affirmations, including ?I am able to let things be?, ?I am deserving of peace?, and ?I am capable of making healthy changes?. Pt appeared to benefit from increased knowledge of affirmation writing skills and creating their own affirmation statements to remind themselves of outside tx environment. Will continue aftercare tx to promote consistent mental health maintenance and prevent decompensation. Narrative Note: []
--- NOTE | 2023-10-13 14:01 | BH.COMM ---
Communication Note Communication with Client Communication Note: Entered in error. Disregard
--- NOTE | 2023-10-20 14:00 | BH.SGPN.GN ---
Behaviors/Verbalizations/Mental Status: []Pt alert and oriented, casually dressed and groomed. Eye contact good. Motor activity appropriate. Speech within normal limits. Affect congruent, mood dysthymic. Thoughts linear, logical, no signs of hallucinations or delusions. Client Response/Progress/Benefit: [] Pt receptive of session, engaged throughout. Pt shared she did not attend an outpatient therapy session this week but will next week, has been consistent with meds, and is using coping skills. These skills included: grounding, thought challenging, deep breathing, and positive self-talk. Receptive of discussion on ?Chapters of my life? poem. Pt contributed to the discussion of the different chapters one may go through and how they connect with current mental health progress. Pt reflected and identified their current chapter as ?3? and noted ?I know and understand why I keep falling in the hole, but I am using coping skills to get out quicker?. Identified that taking more time to recognize and address warning signs early would help with getting to the next chapter. Pt seemed to benefit from support from peers and increasing understanding of ?Chapters of my life?. Will continue IOP aftercare to maintain gains and prevent decompensation. Narrative Note: []
--- NOTE | 2023-10-20 15:10 | BH.TPR ---
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 Status of Current Problems and Symptoms: Client reporting improved mood, ability to manage daily struggles, and improved ability to use healthy coping skills even when having difficulty moments. Pt currently reporting mild depression and anxious symptoms. Per DSM 5 cross cutting measure at review scores indicate an overall 61% decrease in overall symptoms when compared to IOP admission scores. Progress Problem #1: Problem Name:: Pt will maintain or see a reduction in sx. Status of Goals:: Obj 1 - met, ongoing work encouraged. Per DSM 5 cross-cutting measure client's depressed symptoms have decreased by 50% and anxiety has decreased by 67% compared to IOP admission scores. Obj 2 - met, ongoing work encouraged. Client reports use of grounding, self-compassion, thought challenging, deep breathing, and positive self-talk. Team Recommendations:: Recommended client continue IOP aftercare group in addition to attending regular outpatient counseling in order to maintain gains. Pt also recommended to continue working on self-compassion and thought challenge.
--- NOTE | 2023-11-03 14:00 | BH.SGPN.GN ---
Behaviors/Verbalizations/Mental Status: []Pt alert and oriented, neatly dressed and groomed. Eye contact good. Motor activity appropriate. Speech within normal limits. Affect congruent, mood euthymic. Thoughts linear, logical, no signs of hallucinations or delusions. Client Response/Progress/Benefit: []Pt responded well to session, Pt reports she sees her therapist for the first time tomorrow and she is consistent with medications. Pt shared a recent stressor with the group and received support from peers and elevator erector helper which helped pt give herself credit. Pt also reflected on the coping skills pt has been using such as watching shows that make her laugh, being with family, and communicating. Pt engaged well during the discussion of the components of self-compassion. Pt connected with the benefits of self-compassion and participated in the activity of reframing a recent setback using self-compassion. Pt receptive to feedback from elevator erector helper on self-compassion not being excuses, but rather broad understanding and nette. Pt appeared to benefit from practicing self-compassion and connecting with peers. Will continue IOP tx to promote use of healthy coping skills and increase self-confidence. Narrative Note: []
== END 2023-11-06 23:59 ==
LOC: BHOG 08:08
PROVIDERS: Referring Provider Psychiatry & Neurology Psychiatry; Visit Provider Psychiatry & Neurology Psychiatry
DX: F31.4 Bipolar disorder, current episode depressed, severe, without psychotic features (principal); F43.10 Post-traumatic stress disorder, unspecified; F41.1 Generalized anxiety disorder; F14.91 Cocaine use, unspecified, in remission; Z79.899 Other long term (current) drug therapy
CPT/HCPCS: 90853

== ENCOUNTER 2023-11-07 07:17 | Outpatient (RCR) | payer OTHER, SELFPAY | END 2023-12-07 23:59 | disposition home or self-care (01) | LOC: BHOG 07:17 | PROVIDERS: Referring Provider Psychiatry & Neurology Psychiatry; Visit Provider Psychiatry & Neurology Psychiatry | DX: Z00.00 Encounter for general adult medical examination without abnormal findings (principal) ==

== ENCOUNTER 2023-12-08 07:17 | Outpatient (RCR) | payer OTHER, SELFPAY | END 2023-12-08 08:04 | disposition home or self-care (01) | LOC: BHOG 07:17 | PROVIDERS: Referring Provider Psychiatry & Neurology Psychiatry; Visit Provider Psychiatry & Neurology Psychiatry ==

== ENCOUNTER → 2024-06-28 | Outpatient (CLI) | payer OTHER, SELFPAY ==
[2024-06-28 13:05] LABS: Absolute Lymphocyte Count 1.91 X10^3/uL (0.83-4.51); Absolute Neutrophil Count 4.2 X10^3/uL (2.0-7.7); Basophil# 0.03 X10^3/uL; Basophil% 0.4 % (0-1); Eosinophil# 0.11 X10^3/uL; Eosinophils% 1.6 % (0-5); Hematocrit 41.8 % (37-47); Hemoglobin 13.4 g/dL (12.0-15.0); Lymphocyte # 1.91 X10^3/ul (0.83-4.51); Lymphocyte % 27.9 % (19-41); Mean Corp Hgb Conc 32.1 g/dL (32-36); Mean Corpuscular Hgb 27.3 pg (27.0-32.0); Mean Corpuscular Volume 85.3 fL (81-99); Monocyte# 0.55 X10^3/uL; NRBC Flagged by Analyzer 0 % (0-5); Neutrophil # 4.22 X10^3/uL (2.7-7.7); Neutrophil % 61.8 % (47-70); Platelet Count 268 K/mm3 (150-450); RBC Distribution Width SD 40.3 fl (35.1-43.9); White Blood Count 6.8 K/mm3 (4.4-11.0)
[2024-06-28 13:35] LABS: ALB/GLOB Ratio 1.1 RATIO (0.9-2.4); AST(SGOT) 13 U/L (15-37); Alanine Aminotransfer ALT/SGPT 16 U/L (13-56); Albumin, Serum 3.8 g/dL (3.2-5.0); Alkaline Phosphatase 62 U/L (45-117); Anion Gap 6 (5-15); BUN 6 mg/dL (7-18); BUN/Creat Ratio 6.6 RATIO (10-20); Chloride 106 mmol/L (98-107); Creatinine, Serum 0.91 mg/dL (0.55-1.02); EST Glomerular Filtration Rate 76 mL/min (>60); Est Glom Filt Rate - Afr Amer 92 mL/min (>60); Free T3 2.6 pg/mL (2.18-3.98); Globulin 3.4 g/dL (2.2-4.2); Glucose 97 mg/dL (74-106); Potassium 3.9 mmol/L (3.5-5.1); Protein, Total 7.2 g/dL (6.4-8.2); Sodium Level 140 mmol/L (136-145); T4 Free Direct 0.85 ng/dL (0.76-1.46)
[2024-06-28 14:39] LABS: Vitamin D,25 Hydroxy 36.6 ng/mL
== END | disposition home or self-care (01) ==
LOC: LAB 12:20
PROVIDERS: Referring Provider Nurse Practitioner Family; Visit Provider Nurse Practitioner Family
DX: L65.9 Nonscarring hair loss, unspecified (principal); Z13.29 Encounter for screening for other suspected endocrine disorder
CPT/HCPCS: 36415; 80053; 82306; 84439; 84443; 84481; 85025